=== PATIENT | female | born 1955 | race Caucasian/White ===

== ENCOUNTER 2020-01-26 09:12 | Outpatient (REF) | payer OTHER, SELFPAY ==
[2020-01-26 11:07] LABS: MANUAL DIFF FLAG NO
[2020-01-26 11:16] LABS: Basophils Percent Auto 0.4 % (0-2); Eosinophils Absolute Auto 0.1 X10*3/uL (0.0-0.4); Hematocrit 39.6 % (37-47); Hemoglobin 12.6 g/dl (12.0-16.0); Imm Gran Abs Auto 0.02 X10*3/uL (0.00-0.03); Imm Gran Pct Auto 0.4 % (0.0-0.4); Lymphocytes Absolute Auto 1.5 X10*3/uL (1.2-4.9); Mean Corpuscular HGB Conc 31.8 g/dl (31.0-35.0); Mean Corpuscular Hemoglobin 32.6 pg (27.0-33.0); Mean Corpuscular Volume 102.3 fL (80-98); Mean Platelet Volume 11.7 fL (9.4-12.3); Monocytes Absolute Auto 0.5 X10*3/uL (0.1-1.2); Monocytes Percent Auto 9.2 % (2-11); Neutrophils Absolute Auto 3.3 X10*3/uL (2.0-8.3); Platelet Count 275 X10*3/uL (160-400); Red Blood Count 3.87 X10*6/uL (4.20-5.50); Red Cell Distribution Width 12.3 % (11.0-16.0); White Blood Count 5.4 X10*3/uL (4.8-10.8)
[2020-01-26 11:47] LABS: Anion Gap 15 (12-20); Blood Urea Nitrogen 16 mg/dL (9-16); Calcium 9.3 mg/dL (8.4-10.2); Carbon Dioxide 26 mmol/L (22-29); Chloride 105 mmol/L (96-108); Estimated Glomerular Filt Rate > 60; Glucose Random 79 mg/dL (60-115); Potassium 4.5 mmol/l (3.3-5.1); Sodium 141 mmol/L (135-145)
[2020-01-26 12:02] LABS: Vitamin B12 339 pg/mL (200-900)
[2020-01-26 12:09] LABS: Ferritin 84 ng/mL (10-250)
== END 2020-01-26 09:13 | disposition home or self-care (01) ==
LOC: HO.HMGCLDS 09:12
PROVIDERS: PCP Internal Medicine; Visit Provider Internal Medicine
DX: Z20.828 Contact with and (suspected) exposure to other viral communicable diseases (principal); R10.13 Epigastric pain; D80.3 Selective deficiency of immunoglobulin G [IgG] subclasses; E55.9 Vitamin D deficiency, unspecified; E61.1 Iron deficiency; F33.9 Major depressive disorder, recurrent, unspecified; G25.81 Restless legs syndrome; J30.9 Allergic rhinitis, unspecified; M62.838 Other muscle spasm
CPT/HCPCS: 36415; 80048; 82607; 82728; 85025; 87635

== ENCOUNTER 2020-03-09 14:55 | Outpatient (REF) | payer OTHER, SELFPAY ==
--- NOTE | 2020-03-09 15:04 | XR_ITS ---
EXAMINATION: XR ELBOW, LEFT CLINICAL INFORMATION: Lateral epicondylitis left elbow. COMPARISON: None TECHNIQUE: AP, lateral, and oblique views of the left elbow. FINDINGS: There is no visible acute fracture, dislocation, or subluxation. No abnormal joint effusion. There is a small bony outpouching arising from the anterior and medial aspect of the distal femur, question tug lesion from old injury or osteochondroma. The soft tissues are unremarkable. XR/XR elbow LT 2V IMPRESSION: No acute fracture, dislocation, or subluxation. Small bony growth anterior and medial to the distal humerus. Most likely tug lesion. Differential diagnosis includes osteochondroma/exostosis.
== END 2020-03-09 14:56 | disposition home or self-care (01) ==
LOC: HO.HMGCX 14:55
PROVIDERS: PCP Internal Medicine; Visit Provider Internal Medicine
DX: M77.10 Lateral epicondylitis, unspecified elbow (principal)
CPT/HCPCS: 73070

== ENCOUNTER → 2020-03-30 08:03 | Outpatient (BNVA) | payer OTHER, SELFPAY | PROVIDERS: PCP Internal Medicine; Referring Provider Internal Medicine; Visit Provider Student in an Organized Health Care Education/Training Program | DX: Z13.89 Encounter for screening for other disorder (principal) | CPT/HCPCS: Q3014 ==

== ENCOUNTER → 2020-05-25 10:51 | Outpatient (BNVA) | payer OTHER, SELFPAY | PROVIDERS: PCP Internal Medicine; Visit Provider Orthopaedic Surgery | DX: M77.12 Lateral epicondylitis, left elbow (principal) | CPT/HCPCS: 99202 ==

== ENCOUNTER → 2020-06-24 08:38 | Outpatient (BNVA) | payer OTHER, SELFPAY | PROVIDERS: PCP Internal Medicine; Visit Provider Family Medicine Adult Medicine | DX: M96.1 Postlaminectomy syndrome, not elsewhere classified (principal); M54.12 Radiculopathy, cervical region; Z79.899 Other long term (current) drug therapy | CPT/HCPCS: Q3014 ==

== ENCOUNTER → 2020-07-09 08:01 | Outpatient (BNVA) | payer OTHER, SELFPAY | PROVIDERS: PCP Internal Medicine; Visit Provider Nurse Practitioner Family | DX: M96.1 Postlaminectomy syndrome, not elsewhere classified (principal); M54.12 Radiculopathy, cervical region | CPT/HCPCS: 99212 ==

== ENCOUNTER 2020-07-13 15:58 | Outpatient (REF) | payer OTHER, SELFPAY ==
--- NOTE | ~2020-07-13 | XR_ITS ---
EXAMINATION: XR RIBS, RIGHT CLINICAL INFORMATION: Injury COMPARISON: Previous chest x-ray most recent TECHNIQUE: 3 views of the right ribs and one view of the chest were obtained. FINDINGS: The cardiac and mediastinal contours are normal. The lungs are clear. There is no pleural effusion or pneumothorax. There are degenerative changes of the thoracic spine. There is a right posterior 11th rib fracture. XR/XR ribs RT min 3V w CXR1V IMPRESSION: Right posterior 11th rib fracture.
== END 2020-07-13 15:59 | disposition home or self-care (01) ==
LOC: HO.HMGCX 15:58
PROVIDERS: PCP Internal Medicine; Visit Provider Nurse Practitioner Family
DX: S29.9XXA Unspecified injury of thorax, initial encounter (principal); W19.XXXA Unspecified fall, initial encounter; Y93.9 Activity, unspecified; Y92.9 Unspecified place or not applicable; Y99.9 Unspecified external cause status
CPT/HCPCS: 71101

== ENCOUNTER → 2020-07-20 10:22 | Outpatient (BNVA) | payer OTHER, SELFPAY | PROVIDERS: PCP Internal Medicine; Visit Provider Urology | DX: N30.10 Interstitial cystitis (chronic) without hematuria (principal) | CPT/HCPCS: 99212 ==

== ENCOUNTER 2020-08-03 07:41 | Outpatient (REF) | payer OTHER, SELFPAY ==
[2020-08-03 11:48] LABS: Alanine Aminotransferase 11 U/L (0-31); Albumin Level 4.4 g/dL (3.5-5.0); Alkaline Phosphatase 90 U/L (39-117); Anion Gap 14 (12-20); Aspartate Amino Transferase 18 U/L (5-31); Bilirubin Total 0.4 mg/dL (0.0-1.0); Blood Urea Nitrogen 13 mg/dL (9-16); Calcium 9.3 mg/dL (8.4-10.2); Carbon Dioxide 27 mmol/L (22-29); Chloride 106 mmol/L (96-108); Estimated Glomerular Filt Rate > 60; Glucose Random 98 mg/dL (60-115); Sodium 142 mmol/L (135-145); Total Protein 6.6 g/dL (6.5-8.0)
[2020-08-03 12:09] LABS: Ferritin 103 ng/mL (10-250); TSH reflex Free T4 1.86 uIU/mL (0.32-4.0)
[2020-08-03 12:17] LABS: Amphetamine Screen Urine Not Detected (Not Detect); Barbiturates, Urine Not Detected (Not Detect); Benzodiazepines Screen Urine Not Detected (Not Detect); Cannabinoid Screen Urine POSITIVE (Not Detect); Cocaine Screen Urine Not Detected (Not Detect); Opiate Screen Urine Not Detected (Not Detect); Phencyclidine Screen Urine Not Detected (Not Detect)
[2020-08-04 23:57] LABS: Immunoglobulin G Subclass 1 384 mg/dL (382-929); Immunoglobulin G Subclass 2 175 mg/dL (241-700); Immunoglobulin G Subclass 3 18 mg/dL (22-178); Immunoglobulin G Subclass 4 14.2 mg/dL (4-86); Immunoglobulin G Total 651 mg/dL (600-1540)
[2020-08-05 10:22] LABS: LDL Cholesterol Direct 116 mg/dL (<100)
[2020-08-06 16:43] LABS: Vitamin D 25-OH, D2 <4 ng/mL; Vitamin D 25-OH, D3 44 ng/mL; Vitamin D 25-OH, Total 44 ng/mL (30-100)
[2020-08-26 11:54] LABS: Noroxycodone, Ur 1739; Oxycodone, Ur 253
[2020-08-26 11:55] LABS: Codeine, Ur NEGATIVE; Hydrocodone, Ur NEGATIVE; Hydromorphone, Ur NEGATIVE; Morphine, Ur NEGATIVE; Norhydrocodone, Ur NEGATIVE; Oxymorphone, Ur 225
== END 2020-08-03 07:42 | disposition home or self-care (01) ==
LOC: HO.HMGCLDS 07:41
PROVIDERS: PCP Internal Medicine; Visit Provider Physician Assistant
DX: D80.3 Selective deficiency of immunoglobulin G [IgG] subclasses (principal); M96.1 Postlaminectomy syndrome, not elsewhere classified; E61.1 Iron deficiency; M54.12 Radiculopathy, cervical region; M62.838 Other muscle spasm; R20.2 Paresthesia of skin; E55.9 Vitamin D deficiency, unspecified; F11.20 Opioid dependence, uncomplicated; F33.9 Major depressive disorder, recurrent, unspecified
CPT/HCPCS: 36415; 80053; 80307; 80364; 80365; 82306; 82728; 82784; 83721; 84443

== ENCOUNTER → 2020-08-16 08:57 | Outpatient (BNVA) | payer OTHER, SELFPAY | PROVIDERS: Visit Provider Orthopaedic Surgery | DX: M65.341 Trigger finger, right ring finger (principal); G56.01 Carpal tunnel syndrome, right upper limb; G56.21 Lesion of ulnar nerve, right upper limb | CPT/HCPCS: 99202 ==

== ENCOUNTER 2020-09-16 06:53 | Day surgery (SDC) | payer OTHER, SELFPAY ==
[2020-09-10 12:44] VITALS: BMI 24.6
--- NOTE | 2020-09-14 11:08 | P.CONAN_ITS ---
Documented by User: Charo Murillo 09/14/20 11:12 HPI - Anesthesia Eval Consult details Narrative: 64yo F for Right Cubital Tunnel Release vs Transposition, Ring Finger A1 Pully Release R rib fracture 07/2020 [facility] Active Problems Active Problems: All Active Problems (Updated 09/03/20 @ 08:58 by Kalia Hunt MD) Neuropathy (Acute) Cubital tunnel syndrome on right (Acute) Carpal tunnel syndrome of right wrist (Acute) Trigger finger, right ring finger (Acute) Interstitial cystitis (Acute) Traumatic injury of chest wall (Acute) Cervical radiculopathy (Acute) Failed back syndrome, lumbar (Acute) Paresthesia of hand, bilateral (Acute) Lateral epicondylitis, left elbow (Acute) Elbow pain, left (Acute) Flu-like symptoms (Acute) Lumbar spondylosis (Acute) Primary osteoarthritis, right hand (Acute) Cervical stenosis of spinal canal (Acute) Tennis elbow (Acute) Chronic narcotic dependence (Acute) Pain management (Acute) Allergic rhinitis (Acute) Muscle spasm (Acute) Dyspepsia (Acute) Depression, major, recurrent (Acute) Vitamin D deficiency (Acute) Iron deficiency (Acute) IgG deficiency (Acute) Restless leg syndrome (Acute) Spinal stenosis at L4-L5 level (Acute) Past Medical History Medical History Allergic rhinitis Cervical radiculopathy Cervical stenosis of spinal canal Chronic narcotic dependence Depression, major, recurrent Diverticulosis Dyspepsia Failed back syndrome, lumbar History of sleep apnea Hx LEEP (loop electrosurgical excision procedure), cervix, Hx of degenerative disc disease IBS (irritable bowel syndrome) Interstitial cystitis Iron deficiency Lumbar spondylosis Migraines Muscle spasm Overactive bladder Pain management Primary osteoarthritis, right hand Restless leg syndrome Spinal stenosis at L4-L5 level Tennis elbow Vitamin D deficiency Family History Family History Father Leukemia HTN (hypertension) CVD (cerebrovascular disease) Mother HTN (hypertension) Alzheimer disease Afib Maternal Grandmother Uterine cancer Maternal Grandfather History of heart attack CVD (cardiovascular disease) Paternal Grandmother History of heart attack CVD (cardiovascular disease) Paternal Grandfather CVD (cardiovascular disease) Maternal Aunt Cervical cancer Emphysema lung Surgical History Surgical History History of cystoscopy (01/27/14) History of endometrial ablation History of laparoscopic appendectomy (1988) History of lumbar surgery (2010) Hx of bilateral breast reduction surgery Hx of colonoscopy (01/16/16) Hx of hysterectomy, total (01/2013) Hx of right knee surgery (2010) Social History Social History (Updated 08/16/20 @ 09:06 by Yamile Adams) Household Members Other:: lives with brother Alcohol intake: current Alcohol intake frequency: a few times a month Patient Tobacco Use Status: Former Tobacco user Quit Date: 4yrs ago Use of substances other than those prescribed or required for medical reasons: Yes Substance Use Type Other:: medical marijuana Substance Use Frequency: Daily Are you DNR?: No Advance Directives: No Advance Directives Information Provided: Yes Current occupational status: disabled Current occupation: [employer] Meds Allergies Allergy/AdvReac Type Severity Reaction Status Date / Time codeine [CODEINE] Allergy Severe SWELLING Verified 09/16/20 07:48 erythromycin base Allergy Intermediate TOPICAL Verified 09/16/20 07:48 [Erythromycin Base] ERYTHROMYCIN- SKIN IRRITATION Home Medications Medication Instructions Recorded Confirmed Last Taken Type cetirizine 10 mg tablet 20 mg PO BID 01/06/20 09/10/20 Unknown History fluticasone propionate 50 2 spray INTRANASAL DAILY 01/06/20 09/10/20 Unknown History mcg/actuation nasal spray,suspension pramipexole 1.5 mg tablet 1.5 mg PO BEDTIME 01/06/20 09/10/20 Unknown History propranolol 20 mg tablet 20 mg PO BEDTIME 01/06/20 09/10/20 Unknown History sumatriptan succinate 50 mg tablet 50 mg PO DAILY PRN 01/06/20 09/10/20 Unknown History triamcinolone acetonide 0.1 % 1 applic TOPICAL BID PRN 01/06/20 09/10/20 Unknown History topical cream omalizumab 150 mg/mL subcutaneous mg SUBCUT 02/03/20 09/03/20 Unknown History syringe Exam Exam Date and Time: September 14, 2020 1108 Height,Weight and Vital Signs: Height 5 ft 5 in Weight 67.132 kg Pertinent Lab Results Pertinent Lab Results: Laboratory Tests 08/03/20 07:50 Sodium 142 Potassium 5.0 Chloride 106 Carbon Dioxide 27 BUN 13 Creatinine 0.82 Assessment and Plan Assessment Anesthesia Assessment: Chart Reviewed Documented by User: Abdirahman Canada MD 09/16/20 07:52 [facility] Past Medical History Medical History Allergic rhinitis Cervical radiculopathy Cervical stenosis of spinal canal Chronic narcotic dependence Depression, major, recurrent Diverticulosis Dyspepsia Failed back syndrome, lumbar History of sleep apnea Hx LEEP (loop electrosurgical excision procedure), cervix, Hx of degenerative disc disease IBS (irritable bowel syndrome) Interstitial cystitis Iron deficiency Lumbar spondylosis Migraines Muscle spasm Overactive bladder Pain management Primary osteoarthritis, right hand Restless leg syndrome Spinal stenosis at L4-L5 level Tennis elbow Vitamin D deficiency Family History Family History Father Leukemia HTN (hypertension) CVD (cerebrovascular disease) Mother HTN (hypertension) Alzheimer disease Afib Maternal Grandmother Uterine cancer Maternal Grandfather History of heart attack CVD (cardiovascular disease) Paternal Grandmother History of heart attack CVD (cardiovascular disease) Paternal Grandfather CVD (cardiovascular disease) Maternal Aunt Cervical cancer Emphysema lung Surgical History Surgical History History of cystoscopy (01/27/14) History of endometrial ablation History of laparoscopic appendectomy (1988) History of lumbar surgery (2010) Hx of bilateral breast reduction surgery Hx of colonoscopy (01/16/16) Hx of hysterectomy, total (01/2013) Hx of right knee surgery (2010) Social History Social History (Updated 08/16/20 @ 09:06 by Yamile Adams) Household Members Other:: lives with brother Alcohol intake: current Alcohol intake frequency: a few times a month Patient Tobacco Use Status: Former Tobacco user Quit Date: 4yrs ago Use of substances other than those prescribed or required for medical reasons: Yes Substance Use Type Other:: medical marijuana Substance Use Frequency: Daily Are you DNR?: No Advance Directives: No Advance Directives Information Provided: Yes Current occupational status: disabled Current occupation: [employer] Meds Allergies Allergy/AdvReac Type Severity Reaction Status Date / Time codeine [CODEINE] Allergy Severe SWELLING Verified 09/16/20 07:48 erythromycin base Allergy Intermediate TOPICAL Verified 09/16/20 07:48 [Erythromycin Base] ERYTHROMYCIN- SKIN IRRITATION Home Medications Medication Instructions Recorded Confirmed Last Taken Type cetirizine 10 mg tablet 20 mg PO BID 01/06/20 09/10/20 Unknown History fluticasone propionate 50 2 spray INTRANASAL DAILY 01/06/20 09/10/20 Unknown History mcg/actuation nasal spray,suspension pramipexole 1.5 mg tablet 1.5 mg PO BEDTIME 01/06/20 09/10/20 Unknown History propranolol 20 mg tablet 20 mg PO BEDTIME 01/06/20 09/10/20 Unknown History sumatriptan succinate 50 mg tablet 50 mg PO DAILY PRN 01/06/20 09/10/20 Unknown History triamcinolone acetonide 0.1 % 1 applic TOPICAL BID PRN 01/06/20 09/10/20 Unknown History topical cream omalizumab 150 mg/mL subcutaneous mg SUBCUT 02/03/20 09/03/20 Unknown History syringe Exam Airway Mallampati Class: I TM Dist: >3cm Neck ROM: Full Loose/Missing/Broken Teeth: No Heart: RRR Assessment and Plan Assessment Anesthesia Assessment: Anesthesia Plan Discussed and Chart Reviewed Final Anesthetic Review NPO: Yes ASA Class: II Final Preanesthetic Review: No Changes in Pt Med Stat, Meds/Allgs Chart Reviewed, Consent Obtained/Reviewed and Anes Risks/Benef Reviewed Patient Risk: Low Procedure Risk: Low Anesthetic Plan Anesthetic Plan: GA Disposition: Standard PACU
[2020-09-16] VITALS (11 sets, daily range): BP systolic 117–166; BP diastolic 47–68; PULSE 45–66; RESP 16–20; TEMP 36.1–36.6; O2SAT 94–100
[2020-09-16] MEDS: Lactated Ringers 1,000 ML 100 ML IVCONT (07:45)
--- NOTE | 2020-09-16 08:25 | MHC.SHP ---
Pre-Procedural Eval Section B Chief Complaint: carpal tunnel syndrome Allergies: Allergies Allergy/AdvReac Type Severity Reaction Status Date / Time codeine [CODEINE] Allergy Severe SWELLING Verified 09/16/20 07:48 erythromycin base Allergy Intermediate TOPICAL Verified 09/16/20 07:48 [Erythromycin Base] ERYTHROMYCIN- SKIN IRRITATION Plan I have reviewed the history and physical and performed a pertinent physical examination on my patient. No changes have occurred unless specified.
--- NOTE | 2020-09-16 08:25 | W.PM.OPN ---
Operative Note Operative Note Date of Service: 09/16/20 Narrative: Operative Note Narrative: Preop diagnosis: 1. Right Cubital tunnel syndrome 2. Right Carpal tunnel syndrome 3. Right ring finger trigger finger Postop diagnosis: Same Procedure: 1. Right Cubital Tunnel Release 2. Right carpal tunnel release 3. Right ring finger A1 nusrat release, 4. Right ring finger tenotomy and excision of ulnar slip of FDS tendon Surgeon: Concha Betancourt MD Anesthesia: General Findings: Thickened transverse carpal ligament. The right ring finger was still locking after the A1 nusrat release. No locking and catching after tenotomy and excision of the ulnar slip of the FDS tendon. Implants: none Tourniquet time: 58 minutes EBL: 5.0 ml Specimen: none Drains: None Complications: None Disposition: Brought to the recovery room in stable condition Plan: Follow-up in 10-14 days for wound check, and suture removal Indications: The patient is 64 years old woman with right cubital tunnel syndrome, right carpal tunnel syndrome, and a symptomatic right ring finger trigger finger . The risks and benefits of operative treatment, including but not limited to risk of damage to blood vessels, nerves, tendons, infection, recurrence, persistent pain or numbness, incomplete resolution of preoperative symptoms, or need for further surgery were discussed with the patient and they wished to proceed with surgery. Procedure: Once consent was obtained patient was brought back to the operating suite and placed in the operating table in a supine position. Perioperative antibiotics and anesthesia was administered by the anesthesia team. The limb was prepped and draped in a standard surgical fashion, and a sterile tourniquet applied to the proximal aspect of the right upper extremity. The limb was elevated exsanguinated with Esmarch bandage and the tourniquet inflated to 250 mm of mercury for a total tourniquet time of 58 minutes. Once assured that we had a good block, a 1.5 cm oblique incision was made centered over the A1 nusrat of the right ring finger . The incision was made through the skin to the subcutaneous tissues using a #15 blade. Careful dissection was made down to the level of the A1 nusrat using tenotomy scissors, with care being taken to protect the nearby neurovascular structures. A longitudinal incision was made in the A1 nusrat 1st using a #15 blade, then using tenotomy scissors under direct visualization. Following our A1 nusrat release, we noted that she still had locking or catching of the digit with flexion and extension. At this point decision was made to proceed with a tenotomy and excision of the ulnar slip of the flexor digitorum superficialis tendon. I then made part of a Emilia his incision centered over the PIP joint of the right ring finger. Incision was made through the skin to the subcutaneous tissues. I then carefully dissected down to the level of the flexor tendon sheath with care being taken to protect the neurovascular structures. I then used a 15. Blade to open the A3 nusrat. The FDP tendon was then retracted radially exposing to me the ulnar slip of the FDS tendon. The FDS or flexor digitorum superficialis tendon was then cut just prior to its insertion in the middle phalanx using tenotomy scissors. I then used tenotomy scissors to carefully free up the ulnar slip of the FDS tendon from the surrounding tissues including from its attachment to the radial slip of the FDS tendon. I was then able to withdraw the ulnar slip of the FDS tendon proximally to the A1 nusrat area. In this area I then made a beveled cut removing the ulnar slip of the FDS tendon and placing it on the back table. I again tested the right ring finger through flexion and extension and noted that we no longer had locking and catching. Once assured that we had a good block, a 1.5 cm longitudinal incision was made centered over the right carpal tunnel. The incision was made through the skin to the subcutaneous tissues using a #15 blade. Dissection was made down to the level of the transverse carpal ligament with care being taken to protect the palmar cutaneous nerve. Once the transverse carpal ligament was clearly visualized, a longitudinal incision was made in the transverse carpal ligament 1st using a #15 blade, then using tenotomy scissors under direct visualization. Care was taken to look for and protect the motor branch of the median nerve when seen in this area. Once satisfied with our carpal tunnel release the wound was irrigated with normal saline. A 6 cm gently curved but longitudinally oriented incision was made centered over the cubital tunnel of the right upper extremity. Incision was made through the skin to the subcutaneous tissues using a # 15 Blade. I then dissected down to the level of the medial epicondyle and the cubital tunnel using tenotomy scissors. Care was taken to protect the lateral antebrachial cutaneous nerve. The ulnar nerve was identified just posterior to the medial intermuscular septum. Small vessel loop was passed behind the ulnar nerve and used to apply gentle traction to facilitate our release. The ulnar nerve was released in a proximal to distal direction using tenotomy in iris scissors while directly visualizing and protecting the ulnar nerve. Thickening and fibrosis was appreciated about the ulnar nerve as it passed through the cubital tunnel. The ulnar nerve was assessed as I passed the elbow through full flexion and extension and was found to remain stable within its groove. At this point the tourniquet was deflated and hemostasis obtained with a brief period of local pressure and bipolar electrocautery. The wounds were copiously irrigated with normal saline. The subcutaneous layer at the elbow was closed with 4-0 Vicryl suture, and the skin edges were reapproximated with 5-0 nylon suture. The wounds were infiltrated with some 1% lidocaine with epinephrine for postop pain control and sterile dressings and a posterior splint was applied. The patient appears to have tolerated the procedure well and with no complications. All digits were well vascularized conclusion of the case.
[2020-09-16] MEDS: Acetaminophen 325 MG TABLET 650 MG PO (11:01)
[2020-09-16] MEDS: fentaNYL citrate/PF 100 MCG/2 ML VIAL 50 MCG IVPUSH ×2 (11:02→11:12)
== END 2020-09-16 12:00 | disposition home or self-care (01) ==
PROVIDERS: PCP Internal Medicine; Visit Provider Orthopaedic Surgery
PROC: (CPT 64718; principal; 2020-09-16 08:40)
PROC: (CPT 64721; 2020-09-16 08:40)
DX: G56.01 Carpal tunnel syndrome, right upper limb (principal); G56.21 Lesion of ulnar nerve, right upper limb; M65.341 Trigger finger, right ring finger; M85.841 Other specified disorders of bone density and structure, right hand; Z88.8 Allergy status to other drugs, medicaments and biological substances; Z88.1 Allergy status to other antibiotic agents; Z87.891 Personal history of nicotine dependence; Z79.899 Other long term (current) drug therapy
CPT/HCPCS: 64721; 64718; 26170; 26055; 88304; J0690; J1100; J2250; J2405; J3010

== ENCOUNTER → 2020-09-27 10:02 | Outpatient (BNVA) | payer OTHER, SELFPAY | PROVIDERS: Visit Provider Orthopaedic Surgery ==

== ENCOUNTER 2020-12-12 23:08 | Emergency (ER) | payer OTHER, SELFPAY ==
--- NOTE | ~2020-12-12 | CT_ITS ---
EXAMINATION: NONCONTRAST HEAD CT NONCONTRAST MAXILLOFACIAL CT INDICATION INFORMATION: Fall COMPARISON: 01/05/2018 TECHNIQUE: Separate noncontrast CT examinations of the head and facial bone were performed. Coronal and sagittal images were created for each examination at the technologist workstation. This CT examination was performed using dose optimization techniques as appropriate, variously including the following: *Automated exposure control *Adjustment of mA and/or kV according to patient size (this includes techniques or standardized protocols for targeted exams where dose is matched to indication/reason for exam; i.e. extremities or head) *Use of iterative reconstruction technique DLP: 885 mGy-cm FINDINGS: Head: There is no evidence of acute intracranial hemorrhage or territorial infarction. No abnormal mass effect or midline shift is seen. Miller to white matter differentiation is well preserved. No extra-axial fluid collections are identified. No hydrocephalus. No significant volume loss. There is no abnormal attenuation within the brain parenchyma. No acute soft tissue abnormality. No calvarial fracture. The mastoid air cells are well aerated. Maxillofacial: Mildly inwardly angulated bilateral nasal bone fractures. Associated soft tissue swelling and subcutaneous air present anterior to the nasal bones. No additional acute maxillofacial fractures are seen. The pterygoid plates are intact. The lamina papyracea are intact. The zygomatic arches are intact. The orbital rims are intact. Mandible and temporomandibular joints are intact. Mild mucosal thickening within the bilateral maxillary sinuses. Remainder of the paranasal sinuses are clear. Mastoid air cells are pneumatized. The uncinate process is normal bilaterally. The infundibula and middle meati are patent. The nasal septum is midline. The orbits demonstrate a normal appearance bilaterally. The globes are intact, and there are no suspicious findings to suggest retrobulbar hemorrhage. Soft tissues unremarkable. CT/CT facial bones wo con IMPRESSION: 1. No acute intracranial findings. 2. Minimally inwardly displaced bilateral nasal bone fractures. No additional acute facial bone fractures.
--- NOTE | ~2020-12-12 | XR_ITS ---
EXAMINATION: XR WRIST, RIGHT CLINICAL INFORMATION: Pain status post trauma COMPARISON: None TECHNIQUE: PA, lateral, oblique, and scaphoid views of the right wrist. XR/XR wrist RT min 3V FINDINGS/IMPRESSION: Comminuted distal radial metaphyseal fracture with mild dorsal angulation, and extension into the distal radioulnar joint. No definite extension into the radiocarpal joint. Mildly displaced avulsion fracture. Soft tissues unremarkable.
[2020-12-13 01:14] VITALS: BP 139/51; PULSE 56; RESP 18; TEMP 36.7; O2SAT 99; BMI 25.7
--- NOTE | 2020-12-13 02:05 | ED.FALL ---
HPI - Fall General Chief Complaint: Fall Stated Complaint: fall, multiple lac and dental damage Time Seen by Provider: 12/13/20 02:05 Source: patient Mode of arrival: ambulatory History of Present Illness HPI Narrative: 65-year-old female presents after her brother head place that chair in for the door so that her pet could not get out and she tripped over the chair falling forward and hitting her face. She denies any loss of consciousness and is not on blood thinners. Related Data Home Medications Medication Instructions Recorded Confirmed cetirizine 10 mg tablet 20 mg PO BID 01/06/20 09/10/20 fluticasone propionate 50 2 spray INTRANASAL DAILY 01/06/20 09/10/20 mcg/actuation nasal spray,suspension pramipexole 1.5 mg tablet 1.5 mg PO BEDTIME 01/06/20 09/10/20 propranolol 20 mg tablet 20 mg PO BEDTIME 01/06/20 09/10/20 sumatriptan succinate 50 mg tablet 50 mg PO DAILY PRN 01/06/20 09/10/20 triamcinolone acetonide 0.1 % 1 applic TOPICAL BID PRN 01/06/20 09/10/20 topical cream Previous Rx's Medication Instructions Recorded pentosan polysulfate sodium 100 mg 100 mg PO TID 30 Days #90 cap 02/04/20 capsule (Elmiron) oxybutynin chloride 10 mg 10 mg PO DAILY 90 Days #90 tab 07/20/20 tablet,extended release 24 hr nitrofurantoin macrocrystal 50 mg 50 mg PO BEDTIME 90 Days #90 cap 08/20/20 capsule lidocaine 5 % topical patch 1 patch TOPICAL DAILY 30 Days #30 09/03/20 (Lidoderm) ea hydrocodone 5 mg-acetaminophen 325 1 tab PO Q4-6H PRN 7 Days #30 tab 09/16/20 mg tablet cholecalciferol (vitamin D3) 50 50 mcg PO DAILY #90 cap 09/20/20 mcg (2,000 unit) capsule omeprazole 20 mg capsule,delayed 20 mg PO BID #180 cap 10/18/20 release acetaminophen 650 mg 650 mg PO Q8H 90 Days #270 tab 11/15/20 tablet,extended release (Tylenol Arthritis Pain) ibuprofen 600 mg tablet 600 mg PO TID 90 Days #270 tab 11/15/20 bupropion HCl 200 mg tablet,12 hr 200 mg PO QAM 90 Days #90 cap 11/17/20 sustained-release escitalopram oxalate 10 mg tablet 10 mg PO DAILY 90 Days #90 tab 11/17/20 (Lexapro) ferrous gluconate 324 mg (37.5 mg 324 mg PO DAILY #30 cap 11/17/20 iron) tablet gabapentin 300 mg capsule 300 mg PO BEDTIME 30 Days #30 cap 11/17/20 baclofen 10 mg tablet 10 mg PO BID 30 Days #60 tab 11/23/20 Allergies Allergy/AdvReac Type Severity Reaction Status Date / Time codeine [CODEINE] Allergy Severe SWELLING Verified 12/13/20 01:14 erythromycin base Allergy Intermediate TOPICAL Verified 12/13/20 01:14 [Erythromycin Base] ERYTHROMYCIN- SKIN IRRITATION Review of Systems Review of Systems: Pertinent positives and negatives as stated in HPI 10 point review of systems is otherwise negative. [facility] Past Medical History Source: nursing notes reviewed Medical History Allergic rhinitis Cervical radiculopathy Cervical stenosis of spinal canal Chronic narcotic dependence Depression, major, recurrent Diverticulosis Dyspepsia Failed back syndrome, lumbar History of sleep apnea Hx LEEP (loop electrosurgical excision procedure), cervix, Hx of degenerative disc disease IBS (irritable bowel syndrome) Interstitial cystitis Iron deficiency Lumbar spondylosis Migraines Muscle spasm Overactive bladder Pain management Primary osteoarthritis, right hand Restless leg syndrome Spinal stenosis at L4-L5 level Tennis elbow Vitamin D deficiency Surgical History History of cystoscopy (01/27/14) History of endometrial ablation History of laparoscopic appendectomy (1988) History of lumbar surgery (2010) Hx of bilateral breast reduction surgery Hx of colonoscopy (01/16/16) Hx of hysterectomy, total (01/2013) Hx of right knee surgery (2010) Family History Family History Father Leukemia HTN (hypertension) CVD (cerebrovascular disease) Mother HTN (hypertension) Alzheimer disease Afib Maternal Grandmother Uterine cancer Maternal Grandfather History of heart attack CVD (cardiovascular disease) Paternal Grandmother History of heart attack CVD (cardiovascular disease) Paternal Grandfather CVD (cardiovascular disease) Maternal Aunt Cervical cancer Emphysema lung Social History Social History Household Members Other:: lives with brother Alcohol intake: current Alcohol intake frequency: a few times a month Patient Tobacco Use Status: Former Tobacco user Quit Date: 4yrs ago Advance Directives: No Advance Directives Information Provided: Yes Patient : No Current occupational status: disabled 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 GENERAL: Well developed, well nourished, in no acute distress. HEAD: Normocephalic/atraumatic EYES: PERRLA, EOMI EARS: Ext canals without abnormality NOSE: Nares patent bilateral, no septal hematoma OROPHARYNX: no oral lesions noted, posterior pharynx clear, left front tooth noted to be contused but stable, minor contusion to upper lip NECK: Supple, no adenopathy LUNGS: Normal breath sounds. No adventitious sounds or accessory muscle use. SpO2<99> CARDIOVASCULAR: Regular rate and rhythm without noted murmurs, no JVD or lower extremity edema. ABDOMEN: Soft, non-tender, non-distended with bowel sounds. RIGHT UPPER EXTREMITY: Deformity noted to distal forearm, palpable radial/on all pulses, capillary refill less than 3 seconds, sensation intact SKIN: Inspection of the skin reveals no rashes NEUROLOGIC: Alert and oriented x 4. Course Course Course Narrative: 65-year-old female with history and clinical presentation consistent mechanical fall without LOC and not on blood thinners. Review of all investigations shows fracture of right radius and she will be placed in a sugar-tong splint with sling. Broken nose Discharge Plan Discharge Clinical Impression: Fracture of right distal radius, Closed fracture nasal bone, Concussion injury of tooth Patient Disposition: Home, Self-Care Instructions: Arm Fracture in Adults (ED), Nasal Fracture (ED), Splint Care (ED) Additional Instructions: 1. Please follow up with the dentist 1st thing in the morning for evaluation of your left front tooth. 2. Follow-up with the orthopedic surgery office, the referral is provided to you below. 3. Tylenol 1000 mg, orally, every 6 hours as needed for pain control. 4. Follow-up with your primary care provider by calling the office 1st thing in the morning and setting up an appointment for re-evaluation. 5. Apply ice for 10-15 minutes, 3 to 4 times a day to unexposed skin. Return to the ER for acute worsening of your symptoms. Prescriptions: No Action Elmiron 100 mg capsule 100 mg PO TID 30 Days Qty: 90 RF: 6 oxybutynin chloride 10 mg tablet extended release 24hr 10 mg PO DAILY 90 Days Qty: 90 RF: 1 nitrofurantoin macrocrystal 50 mg capsule 50 mg PO BEDTIME 90 Days Qty: 90 RF: 2 cholecalciferol (vitamin D3) 50 mcg (2,000 unit) capsule 50 mcg PO DAILY Qty: 90 RF: 0 omeprazole 20 mg capsule,delayed release(DR/EC) 20 mg PO BID Qty: 180 RF: 0 ibuprofen 600 mg tablet 600 mg PO TID 90 Days Qty: 270 RF: 0 acetaminophen [Tylenol Arthritis Pain] 650 mg tablet extended release 650 mg PO Q8H 90 Days Qty: 270 RF: 0 escitalopram oxalate [Lexapro] 10 mg tablet 10 mg PO DAILY 90 Days Qty: 90 RF: 0 bupropion HCl 200 mg tablet sustained-release 12 hr 200 mg PO QAM 90 Days Qty: 90 RF: 0 gabapentin 300 mg capsule 300 mg PO BEDTIME 30 Days Qty: 30 RF: 0 ferrous gluconate 324 mg (37.5 mg iron) tablet 324 mg PO DAILY Qty: 30 RF: 3 baclofen 10 mg tablet 10 mg PO BID 30 Days Qty: 60 RF: 0 hydrocodone-acetaminophen 5-325 mg tablet 1 tab PO Q4-6H PRN (Reason: pain (scale score 4-6)) 7 Days Qty: 30 RF: 0 lidocaine [Lidoderm] 5 % adhesive patch,medicated 1 patch topical DAILY 30 Days Qty: 30 RF: 3 propranolol 20 mg tablet 20 mg PO BEDTIME RF: 0 cetirizine 10 mg tablet 20 mg PO BID RF: 0 sumatriptan succinate 50 mg tablet 50 mg PO DAILY PRN (Reason: Headache) RF: 0 triamcinolone acetonide 0.1 % cream 1 applic topical BID PRN (Reason: Rash) RF: 0 fluticasone propionate 50 mcg/actuation spray,suspension 2 spray intranasal DAILY RF: 0 pramipexole 1.5 mg tablet 1.5 mg PO BEDTIME RF: 0 Referrals: Kalia Hunt MD [Primary Care Provider] - 2 days Mikey Camacho MD [Physician] - 2 days (Evaluation for right radial fracture with apparent extension into the radioulnar joint)
[2020-12-13] MEDS: Acetaminophen 325 MG TABLET 975 MG PO (02:12)
--- NOTE | 2020-12-13 02:36 | PC.NURSE ---
pt returned from ct.
[2020-12-13 03:51] VITALS: BP 139/53; PULSE 53; RESP 16; O2SAT 98
== END 2020-12-13 03:57 | disposition home or self-care (01) ==
PROVIDERS: Emergency Provider Student in an Organized Health Care Education/Training Program; PCP Internal Medicine
DX: S52.501A Unspecified fracture of the lower end of right radius, initial encounter for closed fracture (principal); S02.2XXA Fracture of nasal bones, initial encounter for closed fracture; S06.0X0A Concussion without loss of consciousness, initial encounter; G44.309 Post-traumatic headache, unspecified, not intractable; W01.10XA Fall on same level from slipping, tripping and stumbling with subsequent striking against unspecified object, initial encounter; Y93.9 Activity, unspecified; Y92.9 Unspecified place or not applicable; Y99.9 Unspecified external cause status; Z79.899 Other long term (current) drug therapy; Z87.891 Personal history of nicotine dependence
CPT/HCPCS: 29105; 70450; 70486; 73110; 99284

== ENCOUNTER → 2020-12-15 08:38 | Outpatient (BNVA) | payer OTHER, SELFPAY | PROVIDERS: PCP Internal Medicine; Visit Provider Physician Assistant | DX: S52.501A Unspecified fracture of the lower end of right radius, initial encounter for closed fracture (principal) | CPT/HCPCS: 99202 ==

== ENCOUNTER 2020-12-16 07:59 | Day surgery (SDC) | payer OTHER, SELFPAY ==
--- NOTE | 2020-12-15 10:51 | HO.ANESPROP2 ---
Documented by User: Charo Murillo NP 12/15/20 10:52 HPI - Anesthesia Eval Consult details Narrative: 65yo F for Right Radius Distal ORIF s/p cubitall tunnel repair 08/2020 with GA-LMA 4 PMFSH Active Problems Active Problems: All Active Problems (Updated 12/15/20 @ 09:24 by Theo Smith PA-C) Distal radius fracture, right (Acute) Carpal tunnel syndrome of left wrist (Acute) IgG deficiency (Acute) Flu-like symptoms (Acute) Elbow pain, left (Acute) Lateral epicondylitis, left elbow (Acute) Paresthesia of hand, bilateral (Acute) Traumatic injury of chest wall (Acute) Trigger finger, right ring finger (Acute) Carpal tunnel syndrome of right wrist (Acute) Cubital tunnel syndrome on right (Acute) Neuropathy (Acute) Interstitial cystitis (Acute) Cervical radiculopathy (Acute) Failed back syndrome, lumbar (Acute) Lumbar spondylosis (Acute) Primary osteoarthritis, right hand (Acute) Cervical stenosis of spinal canal (Acute) Tennis elbow (Acute) Chronic narcotic dependence (Acute) Pain management (Acute) Allergic rhinitis (Acute) Muscle spasm (Acute) Dyspepsia (Acute) Depression, major, recurrent (Acute) Vitamin D deficiency (Acute) Iron deficiency (Acute) Restless leg syndrome (Acute) Spinal stenosis at L4-L5 level (Acute) Past Medical History Medical History Allergic rhinitis Cervical radiculopathy Cervical stenosis of spinal canal Chronic narcotic dependence Depression, major, recurrent Diverticulosis Dyspepsia Failed back syndrome, lumbar History of sleep apnea Hx LEEP (loop electrosurgical excision procedure), cervix, Hx of degenerative disc disease IBS (irritable bowel syndrome) Interstitial cystitis Iron deficiency Lumbar spondylosis Migraines Muscle spasm Overactive bladder Pain management Primary osteoarthritis, right hand Restless leg syndrome Spinal stenosis at L4-L5 level Tennis elbow Vitamin D deficiency Family History Family History Father Leukemia HTN (hypertension) CVD (cerebrovascular disease) Mother HTN (hypertension) Alzheimer disease Afib Maternal Grandmother Uterine cancer Maternal Grandfather History of heart attack CVD (cardiovascular disease) Paternal Grandmother History of heart attack CVD (cardiovascular disease) Paternal Grandfather CVD (cardiovascular disease) Maternal Aunt Cervical cancer Emphysema lung Surgical History Surgical History History of cystoscopy (01/27/14) History of endometrial ablation History of laparoscopic appendectomy (1988) History of lumbar surgery (2010) Hx of bilateral breast reduction surgery Hx of colonoscopy (01/16/16) Hx of hysterectomy, total (01/2013) Hx of right knee surgery (2010) Social History Social History Household Members Other:: lives with brother Alcohol intake: current Alcohol intake frequency: a few times a month Patient Tobacco Use Status: Former Tobacco user Quit Date: 4yrs ago Use of substances other than those prescribed or required for medical reasons: Yes Substance Use Frequency: Daily Are you DNR?: No Advance Directives: No Advance Directives Information Provided: Yes Current occupational status: disabled Current occupation: [employer]. lt hand Meds Allergies Allergy/AdvReac Type Severity Reaction Status Date / Time codeine [CODEINE] Allergy Severe SWELLING Verified 12/15/20 08:54 erythromycin base Allergy Intermediate TOPICAL Verified 12/15/20 08:54 [Erythromycin Base] ERYTHROMYCIN- SKIN IRRITATION Home Medications Medication Instructions Recorded Confirmed Last Taken Type cetirizine 10 mg tablet 20 mg PO BID 01/06/20 09/10/20 Unknown History fluticasone propionate 50 2 spray INTRANASAL DAILY 01/06/20 09/10/20 Unknown History mcg/actuation nasal spray,suspension pramipexole 1.5 mg tablet 1.5 mg PO BEDTIME 01/06/20 09/10/20 Unknown History propranolol 20 mg tablet 20 mg PO BEDTIME 01/06/20 09/10/20 Unknown History sumatriptan succinate 50 mg tablet 50 mg PO DAILY PRN 01/06/20 09/10/20 Unknown History triamcinolone acetonide 0.1 % 1 applic TOPICAL BID PRN 01/06/20 09/10/20 Unknown History topical cream Exam Exam Date and Time: December 15, 2020 1051 Assessment and Plan Assessment Anesthesia Assessment: Chart Reviewed Documented by User: Anni Wiseman MD 12/16/20 10:46 [facility] Past Medical History Medical History Allergic rhinitis Cervical radiculopathy Cervical stenosis of spinal canal Chronic narcotic dependence Depression, major, recurrent Diverticulosis Dyspepsia Failed back syndrome, lumbar History of sleep apnea Hx LEEP (loop electrosurgical excision procedure), cervix, Hx of degenerative disc disease IBS (irritable bowel syndrome) Interstitial cystitis Iron deficiency Lumbar spondylosis Migraines Muscle spasm Overactive bladder Pain management Primary osteoarthritis, right hand Restless leg syndrome Spinal stenosis at L4-L5 level Tennis elbow Vitamin D deficiency Family History Family History Father Leukemia HTN (hypertension) CVD (cerebrovascular disease) Mother HTN (hypertension) Alzheimer disease Afib Maternal Grandmother Uterine cancer Maternal Grandfather History of heart attack CVD (cardiovascular disease) Paternal Grandmother History of heart attack CVD (cardiovascular disease) Paternal Grandfather CVD (cardiovascular disease) Maternal Aunt Cervical cancer Emphysema lung Family history of problems with anesthesia: No Surgical History Surgical History History of cystoscopy (01/27/14) History of endometrial ablation History of laparoscopic appendectomy (1988) History of lumbar surgery (2010) Hx of bilateral breast reduction surgery Hx of colonoscopy (01/16/16) Hx of hysterectomy, total (01/2013) Hx of right knee surgery (2010) History of Problems with Anesthesia: No Social History Social History Household Members Other:: lives with brother Alcohol intake: current Alcohol intake frequency: a few times a month Patient Tobacco Use Status: Former Tobacco user Quit Date: 4yrs ago Use of substances other than those prescribed or required for medical reasons: Yes Substance Use Frequency: Daily Are you DNR?: No Advance Directives: No Advance Directives Information Provided: Yes Current occupational status: disabled 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 Meds Allergies Allergy/AdvReac Type Severity Reaction Status Date / Time codeine [CODEINE] Allergy Severe SWELLING Verified 12/15/20 08:54 erythromycin base Allergy Intermediate TOPICAL Verified 12/15/20 08:54 [Erythromycin Base] ERYTHROMYCIN- SKIN IRRITATION Home Medications Medication Instructions Recorded Confirmed Last Taken Type cetirizine 10 mg tablet 20 mg PO BID 01/06/20 09/10/20 Unknown History fluticasone propionate 50 2 spray INTRANASAL DAILY 01/06/20 09/10/20 Unknown History mcg/actuation nasal spray,suspension pramipexole 1.5 mg tablet 1.5 mg PO BEDTIME 01/06/20 09/10/20 Unknown History propranolol 20 mg tablet 20 mg PO BEDTIME 01/06/20 09/10/20 Unknown History sumatriptan succinate 50 mg tablet 50 mg PO DAILY PRN 01/06/20 09/10/20 Unknown History triamcinolone acetonide 0.1 % 1 applic TOPICAL BID PRN 01/06/20 09/10/20 Unknown History topical cream Exam Airway Mallampati Class: II TM Dist: >3cm Neck ROM: Full Loose/Missing/Broken Teeth: Yes and Upper Assessment and Plan Assessment Anesthesia Assessment: Anesthesia Plan Discussed Final Anesthetic Review Family History of Problems with Anesthesia: No History of Problems with Anesthesia: No NPO: Yes ASA Class: III Final Preanesthetic Review: No Changes in Pt Med Stat, Meds/Allgs Chart Reviewed, Consent Obtained/Reviewed and Anes Risks/Benef Reviewed Patient Risk: Intermediate Procedure Risk: Low Assessment/Block/Sedation in SS: Assess/Block/Sedation-SS Anesthetic Plan Anesthetic Plan: MAC: and Regional Block Disposition: Standard PACU
--- NOTE | ~2020-12-16 | FL_ITS ---
EXAMINATION: XR FLUOROSCOPY WITH IMAGES CLINICAL INFORMATION: Distal radial fracture COMPARISON: Right wrist 12/13/2020 TECHNIQUE: Fluoroscopy performed by Dr. Concha Betancourt. Fluoroscopy time: 20.8 seconds DAP: 42841.3 mGycm2 Images: 3 FINDINGS: There is a distal radial fracture stabilized with a dorsal metallic plate and screws. The fracture fragments are in satisfactory alignment. There is no change in the ulnar styloid process. There is mild soft tissue swelling. FL/FL guidance in OR IMPRESSION: Status post ORIF the distal radial fracture is stabilized in alignment.
[2020-12-16 08:26] VITALS: BP 120/43; PULSE 80; RESP 16; TEMP 36.9; O2SAT 96; BMI 25.7
[2020-12-16] MEDS: Lactated Ringers 1,000 ML 100 ML IVCONT (08:46)
--- NOTE | 2020-12-16 10:00 | MHC.SHP ---
Pre-Procedural Eval Section A Date of Service: 12/16/20 The patient is an INPATIENT: No Changes since office visit: No Cold of Flu in the past 2 weeks, No New Medical Problems, No Changes in Medication and No Patient answered all questions The History & Physical has been completed within 30 days and I have reviewed it.: Yes Section B Chief Complaint: Facture of lower end right radius Allergies: Allergies Allergy/AdvReac Type Severity Reaction Status Date / Time codeine [CODEINE] Allergy Severe SWELLING Verified 12/15/20 08:54 erythromycin base Allergy Intermediate TOPICAL Verified 12/15/20 08:54 [Erythromycin Base] ERYTHROMYCIN- SKIN IRRITATION Plan I have reviewed the history and physical and performed a pertinent physical examination on my patient. No changes have occurred unless specified.
--- NOTE | 2020-12-16 10:00 | W.PM.OPN ---
Operative Note Operative Note Date of Service: 12/16/20 Narrative: Operative Note Narrative: Preop diagnosis: 1. Right Distal radius fracture Postop diagnosis: Same Procedure: 1. Right Distal radius fracture open reduction internal fixation, extra-articular Surgeon: Concha Betancourt MD Anesthesia: Mac plus regional block Findings: Distal radius fracture Implants: A 3 hole Accu Med volar locking plate, with 5 x 2.3 mm locking pegs/screws, and 3 3.5 mm cortical screws Tourniquet time: 27minutes EBL: 5.0 ml Specimen: None Drains: None Complications: None Disposition: Brought to the recovery room in stable condition Plan: Follow-up in 10-14 days for wound check, suture removal and postop radiographs The patient will be placed in a volar wrist splint. Encouraged no lifting of anything heavier than a cell phone. Please encourage active and passive range of motion of the digits. Follow-up at 4-5 weeks postop for repeat radiographs. Indications: The patient is a 65 year old woman with right distal radius fracture . The risks and benefits of operative treatment, including but not limited to risk of damage to blood vessels, nerves, tendons, infection, recurrence, persistent pain or numbness, incomplete resolution of preoperative symptoms, or need for further surgery were discussed with the patient and they wished to proceed with surgery. Procedure: Once consent was obtained patient was brought back to the operating suite and placed in the operating table in a supine position. A regional block was performed by the anesthesia team. Perioperative antibiotics and anesthesia was administered by the anesthesia team. A tourniquet was applied to the proximal aspect of the right upper extremity and the limb was prepped and draped in a standard surgical fashion. The limb was elevated exsanguinated with Esmarch bandage and the tourniquet inflated to 250 mm of mercury for a total tourniquet time of 27 minutes. The FluoroScan was used throughout the case to assess our reduction, and facilitate implant placement. A gentle closed reduction was 1st performed on the patient's right distal radius fracture. Was assessed radiographically before proceeding with the reduction internal fixation. I then made an 8 cm longitudinal incision over the distal aspect of the flexor carpi radialis tendon. The incision was made through the skin to the subcutaneous tissue using a 15. Blade. Then carefully dissected down to flexor carpi radialis tendon she tenotomy scissors. The FCR tendon sheath was then incised longitudinally using tenotomy scissors under direct visualization. The FCR tendon was then retracted ulnarly. I then made a longitudinal incision in the volar forearm fascia through the floor of FCR tendon sheath using tenotomy scissors under direct visualization. I identified the interval between the radial artery and the flexor tendons. This interval was developed further with my index finger, releasing some of the muscular fibers of the flexor pollicis longus. A dull weatlander retractor was then placed. I then created an ulnarly based flap of the pronator quadratus by releasing the radial and distal edges using a 15. Blade. A Jimenez elevator was used to elevate the pronator quadratus from the volar surface of the distal radius. This then revealed to us our distal radius fracture. An open reduction was then performed on our distal radius fracture. I then placed a short narrow 3 hole Accu Med volar locking plate on the volar surface of the distal radius. I placed a single K-wire through the distal aspect of the plate and into the distal radius. This was assessed using fluoroscopic images. I was satisfied with the placement of our plate. I then placed 5 X 2.3 mm locking screws/pegs in the distal aspect of the plate and distal radius by 1st drilling bicortically with a 1.8 mm drill bit, measuring with a depth gauge, and placing the appropriate length locking screws/pegs. The placement of our plate and screws was then assessed again using fluoroscopic images. The once satisfied with the placement of the volar locking plate and screws on the distal aspect of the distal radius, the plate was then reduced to the shaft of the radius. I then placed 3 3.5 mm cortical screws to the proximal aspect of the plate and into the shaft of the radius. This was done by 1st drilling bicortically with a 2.8 mm drill bit, measuring with a depth gauge, and placing the appropriate length screw. Final radiographs were then obtained. The DRUJ was assessed and found to be stable on exam. I was satisfied with our reduction and placement of all implants. At this point the wound was irrigated with normal saline. The pronator quadratus was reduced back over the volar locking plate using some 3-0 Vicryl suture material. The tourniquet was then deflated and hemostasis was obtained with a brief period of local pressure and bipolar monopolar electrocautery. The subcutaneous layer was then reapproximated using some 4-0 Vicryl suture, and the skin edges were reapproximated using some 5 0 Prolene suture. The wound was then infiltrated with some 1% lidocaine with epinephrine postop pain control. A sterile dressing and a short dorsal splint allowing for active flexion and extension of the digits was applied. The patient appears to have tolerated the procedure well and with no complications. All digits were well vascularized conclusion of the case.
[2020-12-16 11:27] VITALS: BP 105/52; PULSE 72; RESP 16; TEMP 36.1; O2SAT 97
[2020-12-16 11:42] VITALS: BP 100/51; PULSE 70; RESP 18; TEMP 36.2; O2SAT 97
== END 2020-12-16 12:17 ==
LOC: HO.SSS 08:00
PROVIDERS: PCP Internal Medicine; Visit Provider Orthopaedic Surgery
PROC: (CPT 25607; principal; 2020-12-16 09:30)
DX: S52.551A Other extraarticular fracture of lower end of right radius, initial encounter for closed fracture (principal); W01.0XXA Fall on same level from slipping, tripping and stumbling without subsequent striking against object, initial encounter; Y93.01 Activity, walking, marching and hiking; Y92.000 Kitchen of unspecified non-institutional (private) residence as the place of occurrence of the external cause; Y99.8 Other external cause status; J30.9 Allergic rhinitis, unspecified; M19.041 Primary osteoarthritis, right hand; Z79.51 Long term (current) use of inhaled steroids; Z79.899 Other long term (current) drug therapy; Z88.8 Allergy status to other drugs, medicaments and biological substances; Z87.891 Personal history of nicotine dependence
CPT/HCPCS: 25607; C1713; C1769; J0690; J1100; J2250; J2405

== ENCOUNTER 2020-12-27 13:08 | Outpatient (REF) | payer OTHER, SELFPAY ==
--- NOTE | ~2020-12-27 | XR_ITS ---
EXAMINATION: XR WRIST, RIGHT CLINICAL INFORMATION: Right wrist pain. COMPARISON: 12/13/2020 TECHNIQUE: PA, lateral, and oblique views of the right wrist. FINDINGS: Since 12/13/2020, the patient has undergone open reduction and fixation of a distal radial fracture. A plate and screw device is present and hardware appears intact. No new fractures are seen. A fracture of the ulnar styloid is present, better appreciated on the 12/13/2020 films. XR/XR wrist RT min 3V IMPRESSION: Status post open reduction internal fixation distal radial fracture.
== END 2020-12-27 13:09 | disposition home or self-care (01) ==
LOC: HO.HOSX 13:08
PROVIDERS: Visit Provider Orthopaedic Surgery
DX: S52.501D Unspecified fracture of the lower end of right radius, subsequent encounter for closed fracture with routine healing (principal)
CPT/HCPCS: 73110; 99212

== ENCOUNTER 2021-01-07 14:54 | Outpatient (REF) | payer OTHER, SELFPAY ==
--- NOTE | ~2021-01-07 | XR_ITS ---
EXAMINATION: XR CHEST CLINICAL INFORMATION: Other specified signs and symptoms involving respiratory system COMPARISON: Previous chest x-rays most recent July 2020 TECHNIQUE: 2 views of the chest were obtained. FINDINGS: The cardiac and mediastinal contours are normal. The lungs are clear. There is no pleural effusion or pneumothorax. There are degenerative changes of the spine. XR/XR chest 2V IMPRESSION: Unremarkable examination.
== END 2021-01-07 14:55 | disposition home or self-care (01) ==
LOC: HO.HMGCX 14:54
PROVIDERS: PCP Internal Medicine; Visit Provider Physician Assistant
DX: Z20.822 Contact with and (suspected) exposure to COVID-19 (principal); R09.89 Other specified symptoms and signs involving the circulatory and respiratory systems; J06.9 Acute upper respiratory infection, unspecified
CPT/HCPCS: 71046; U0003; U0005

== ENCOUNTER 2021-01-19 14:22 | Outpatient (REF) | payer OTHER, SELFPAY | END 2021-01-19 14:23 | disposition home or self-care (01) | LOC: HO.LAB 14:22 | DX: N30.10 Interstitial cystitis (chronic) without hematuria (principal) | CPT/HCPCS: 87086; 87088; 87186; 99212 ==

== ENCOUNTER 2021-01-26 08:24 | Outpatient (REF) | payer OTHER, SELFPAY ==
--- NOTE | ~2021-01-26 | XR_ITS ---
EXAMINATION: XR WRIST, RIGHT CLINICAL INFORMATION: Distal radial fracture, post reduction. Follow-up. COMPARISON: Radiographs right wrist 12/27/2020, 12/13/2020 TECHNIQUE: PA, lateral, and oblique views of the right wrist. FINDINGS: Distal radial fracture is reduced with volar side plate and screws. The hardware is intact. The fracture fragments are in near-anatomic alignment. The ulnar variance is neutral. Fractured ulnar styloid again noted. No acute bony abnormality. XR/XR wrist RT min 3V IMPRESSION: Status post open reduction internal fixation distal radial fracture. Hardware intact.
== END 2021-01-26 08:25 | disposition home or self-care (01) ==
LOC: HO.HOSX 08:24
PROVIDERS: Visit Provider Orthopaedic Surgery
DX: S52.501A Unspecified fracture of the lower end of right radius, initial encounter for closed fracture (principal); G56.02 Carpal tunnel syndrome, left upper limb
CPT/HCPCS: 73110; 99212

== ENCOUNTER 2021-01-28 13:27 | Outpatient (REF) | payer OTHER, SELFPAY ==
[2021-01-28 16:11] LABS: MANUAL DIFF FLAG NO
[2021-01-28 16:12] LABS: Basophils Percent Auto 0.7 % (0-2); Eosinophils Absolute Auto 0.1 X10*3/uL (0.0-0.4); Eosinophils Percent Auto 2.2 % (0-4); Hematocrit 37.2 % (37-47); Hemoglobin 12.1 g/dl (12.0-16.0); Imm Gran Abs Auto 0.01 X10*3/uL (0.00-0.03); Imm Gran Pct Auto 0.2 % (0.0-0.4); Lymphocytes Absolute Auto 1.7 X10*3/uL (1.2-4.9); Lymphocytes Percent Auto 30.9 % (20-40); Mean Corpuscular HGB Conc 32.5 g/dl (31.0-35.0); Mean Corpuscular Hemoglobin 33.3 pg (27.0-33.0); Mean Corpuscular Volume 102.5 fL (80-98); Mean Platelet Volume 11.2 fL (9.4-12.3); Monocytes Absolute Auto 0.5 X10*3/uL (0.1-1.2); Monocytes Percent Auto 8.4 % (2-11); Neutrophils Absolute Auto 3.1 X10*3/uL (2.0-8.3); Neutrophils Percent Auto 57.6 % (45-73); Platelet Count 304 X10*3/uL (160-400); Red Blood Count 3.63 X10*6/uL (4.20-5.50); Red Cell Distribution Width 12.5 % (11.0-16.0); White Blood Count 5.3 X10*3/uL (4.8-10.8)
[2021-01-28 16:26] LABS: Alanine Aminotransferase 19 U/L (0-31); Albumin Level 4.5 g/dL (3.5-5.0); Alkaline Phosphatase 89 U/L (39-117); Anion Gap 15 (12-20); Aspartate Amino Transferase 25 U/L (5-31); Bilirubin Total 0.2 mg/dL (0.0-1.0); Blood Urea Nitrogen 16 mg/dL (9-16); Calcium 9.2 mg/dL (8.4-10.2); Carbon Dioxide 22 mmol/L (22-29); Chloride 107 mmol/L (96-108); Estimated Glomerular Filt Rate 55; Glucose Random 93 mg/dL (60-115); Potassium 4.6 mmol/L (3.3-5.1); Sodium 139 mmol/L (135-145); Total Protein 6.9 g/dL (6.5-8.0)
[2021-01-28 16:46] LABS: Ferritin 153 ng/mL (10-250); TSH reflex Free T4 1.13 uIU/mL (0.32-4.0)
== END 2021-01-28 13:28 | disposition home or self-care (01) ==
LOC: HO.HMGCLDS 13:27
PROVIDERS: PCP Internal Medicine; Visit Provider Internal Medicine
DX: E61.1 Iron deficiency (principal); F33.9 Major depressive disorder, recurrent, unspecified; M62.838 Other muscle spasm; R10.13 Epigastric pain
CPT/HCPCS: 36415; 80053; 82728; 84443; 85025

== ENCOUNTER → 2021-02-21 08:57 | Outpatient (BNVA) | payer OTHER, SELFPAY | PROVIDERS: PCP Internal Medicine | DX: Z13.89 Encounter for screening for other disorder (principal) | CPT/HCPCS: Q3014 ==

== ENCOUNTER 2021-03-02 09:30 | Outpatient (RCR) | payer OTHER, SELFPAY ==
--- NOTE | 2021-02-11 10:47 | MHC.OT.OEV ---
[address] [phone] F: [phone] Occupational Therapy Evaluation Diagnosis: Right DRF, post-op ORIF Date of Onset: 12/12/20 Date of Surgery: 12/16/20 Attending Provider: Dr Betancourt Prescribed Treatment: Eval and Treat History of Current Condition: 65 yo female tripped over tripped over a chair in her kitchen, resulted in right distal radius fracture, broken nose, and missing front tooth. She went to the ED that night and was referred to [facility] and now is post-op ORIF w/ Dr Betancourt 12/16/20. 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 Difficulty using her mouse at work, holding her phone in right hand Sleep: No issues due to wrist fracture Driving: No issues Pain Assessment Pain Score: 2 Pain Scale Used: Numeric (0 - 10) Pain Location and Description: Pain free at most times Discomfort w/ rotation Aggravating Factors: Rotation, holding her phone in palm Alleviating Factors: Ibuprophen and Tylenol for arthritis at baseline Skin and Soft Tissue Assessment Skin and Soft Tissue: Comments: Well healed volar surgical scar Nerve assessment Ulnar Nerve: WNL Median Nerve: WNL Radial Nerve: WNL Comments: Sensory Assessment Temperature: WFL Light Touch: WFL Proprioception: WFL Comments: Pt reports 'numnbess' over ulnar side of dorsal forearm, intact 3.61 [place] Jorge A B/L volar and dorsal hands and forearms Edema Assessment Upper Extremity: WNL Dexterity Assessment Dexterity: WNL Special Tests Comments: Pain a/ palpation to Ulnar Fovea Weightbearing test R 25lb L 45lb AROM(PROM) Strength Shoulder Flexion: Extension: Abduction: Internal Rotation: External Rotation: Comments: WFL Flexion: Extension: Abduction: Internal Rotation: External Rotation: Comments: Elbow Flexion: Extension: Pronation: Supination: Comments: WFL Flexion: Extension: Pronation: Supination: Comments: Rotation WFL, feels pull/discomort w/ end range pro/sup Wrist Flexion: R 60 L 76 Extension: R 58 L 66 Ulnar Deviation: Radial Deviation: Comments: Flexion: Extension: Ulnar Deviation: Radial Deviation: Comments: Digits Index MCP: PIP: DIP: Long MCP: PIP: DIP: Ring MCP: PIP: DIP: Small MCP: PIP: DIP: Comments: WFL Gross Grasp: R 30lb L 60lb Lateral Pinch: Two-Point Pinch: Three-Jaw Alessio: Comments: Patient Education Primary Language: Cymraes Spool Worker Required: No Current Knowledge: Understands information with skills for self-management Teaching Method: Demonstration Handouts Verbal Education Needs Identified on Evaluation: ADL's Disease Information Equipment Use Exercise Pain Safety How did patient/family demonstrate learning? Patient demonstrates Patient verbalizes Barriers to Learning: None Readiness for Learning: Accepting Who was educated? Patient Comments: Plan of Care Assessment: 65 yo left hand dominant female presents about 8 weeks s/p right distal radius ORIF due to radial styloid fracture. She is doing well, slightly decrease ROM and decreased gross grasp. Her primary complaint at this time is discomfort w/ end range rotation, consistent w/ DRUJ injury. 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 I anticipate she will do well w/ course of occupational therapy for optimal gains of strength and ROM with attention to pain management. STG Duration: 2 weeks Short Term Goals: Pain free w/ light ADL tasks Good follow through w/ DRUJ protection strategies Gross Grasp 40lb Wrist ext/flex 65/65 LTG Duration: 4 weeks Usp Goals: Pt to demo lift and carry 20lb box w/ good joint protection and minimal pain Gross grasp 50lb Ind w/ progression of strengthening exercises Frequency and Duration: The patient will be seen 2x/wk for 4 weeks Treatment Plan: Therapeutic Exercise Therapeutic Activity Home Exercise Program Patient Education ADL Training Paraffin Fluidotherapy MHP Cold Packs Joint Mobilization Soft Tissue Mobilization Kinesiotaping Electronically Signed By: Laurence Garza OTR/L Please sign and return to therapist, Thank you for your referral.
--- NOTE | 2021-03-02 11:12 | MHC.OT.DC ---
[address] [phone] F: [phone] Occupational Therapy Discharge Note Provider: Dr Betancourt Diagnosis: Right DRF, post-op ORIF Date of Surgery: 12/16/20 Date of Evaluation: 02/11/21 Date of Discharge: 03/02/21 Treatments to Date: 5 Discharge Status: Achieved Goals Improved Function Independent with HEP Discharge Summary: Cristina is 11 weeks post-op right distal radius fracture and repair. She has done well in therapy and continues to have improvements w/ overall good strength and range. She has some discomfort in ulnar wrist, but has done well with joint protection and activity modification and will continue progression of isometric and PREs as part of home program. Electronically Signed By: SOPHIE Ring/Bucky Reviewed/agree with student documentation: N/A Therapist: Please Sign and return to therapist, thank you for your referral.
== END 2021-03-02 11:13 | disposition home or self-care (01) ==
LOC: HO.OT 09:30
PROVIDERS: PCP Internal Medicine; Visit Provider Orthopaedic Surgery
DX: S52.501D Unspecified fracture of the lower end of right radius, subsequent encounter for closed fracture with routine healing (principal)
CPT/HCPCS: 97033; 97035; 97110; 97165; 97760

== ENCOUNTER 2021-03-04 16:27 | Outpatient (REF) | payer OTHER, SELFPAY ==
[2021-03-04 17:28] LABS: Influenza A PCR NEGATIVE (Negative); Influenza B PCR NEGATIVE (Negative); Resp Syncy Virus RNA Qual PCR NEGATIVE (Negative); SARS COV2 PCR INHOUSE POSITIVE (Negative)
== END 2021-03-04 16:28 | disposition home or self-care (01) ==
LOC: HO.LNP 16:27
PROVIDERS: Visit Provider Internal Medicine
DX: R43.9 Unspecified disturbances of smell and taste (principal); Z20.822 Contact with and (suspected) exposure to COVID-19
CPT/HCPCS: 0241U

== ENCOUNTER → 2021-06-28 09:56 | Outpatient (BNVA) | payer OTHER, SELFPAY | PROVIDERS: PCP Internal Medicine; Visit Provider Nurse Practitioner Family | DX: M65.331 Trigger finger, right middle finger (principal); R20.0 Anesthesia of skin; R20.2 Paresthesia of skin | CPT/HCPCS: 99212 ==

== ENCOUNTER 2021-07-07 11:15 | Day surgery (SDC) | payer OTHER, SELFPAY ==
[2021-07-07 11:37] VITALS: BP 114/45; PULSE 54; RESP 16; TEMP 36.8; O2SAT 96; BMI 25.4
--- NOTE | 2021-07-07 12:30 | MHC.SHP ---
Pre-Procedural Eval Section A Date of Service: 07/07/21 The patient is an INPATIENT: No Changes since office visit: No Cold of Flu in the past 2 weeks, No New Medical Problems, No Changes in Medication and No Patient answered all questions The History & Physical has been completed within 30 days and I have reviewed it.: Yes Section B Chief Complaint: Anesthesia of skin,trigger finger Allergies: Allergies Allergy/AdvReac Type Severity Reaction Status Date / Time codeine [CODEINE] Allergy Severe SWELLING Verified 06/28/21 10:45 erythromycin base Allergy Intermediate TOPICAL Verified 06/28/21 10:45 [Erythromycin Base] ERYTHROMYCIN- SKIN IRRITATION Plan I have reviewed the history and physical and performed a pertinent physical examination on my patient. No changes have occurred unless specified.
--- NOTE | 2021-07-07 12:32 | W.PM.OPN ---
Operative Note Operative Note Date of Service: 07/07/21 Narrative: Operative Note Preop diagnosis: 1. right middle finger Trigger finger Postop diagnosis: 1. right middle finger Trigger finger Procedure: 1. right middle finger A1 nusrat release Surgeon: Concha Betancourt MD Anesthesia: local block using 1% lidocaine with epinephrine Findings: No locking or catching after A1 nusrat release EBL: Less than 5 mL Tourniquet time: None Specimens: None Complications: None Disposition: Brought to recovery room in stable condition Plan: Follow-up for 10-14 days for wound check and suture removal Indications: The patient is 66 years old, with a right middle finger trigger finger that has been unresponsive to nonoperative management. The risks and benefits of operative treatment including but not limited to risk of damage to blood vessels, nerves, tendons, infection, persistent pain, persistent symptoms, recurrence or possible need for additional surgery were discussed with the patient and the patient wishes to proceed with surgery. Procedure: Once consent was obtained a local block was performed in the preop area using a combination of 1% lidocaine with epinephrine. The patient was then brought back to the operating suite and placed on the operative table in supine position. A tourniquet was applied to the proximal aspect of the right upper extremity and the limb was prepped and draped in a standard surgical fashion. Once assured that we had a good block, a 1.5 cm oblique incision was made centered over the A1 nusrat of the right middle finger . The incision was made through the skin to the subcutaneous tissues using a #15 blade. Careful dissection was made down to the level of the A1 nusrat using tenotomy scissors, with care being taken to protect the nearby neurovascular structures. A longitudinal incision was made in the A1 nusrat 1st using a #15 blade, then using tenotomy scissors under direct visualization. The A1 nusrat was noted to be thickened. Following our A1 nusrat release, we no longer saw any locking or catching of the digit with flexion and extension. Once satisfied with our A1 nusrat release the wound was copiously irrigated with normal saline and hemostasis was obtained with a brief period of local pressure. The skin edges were reapproximated with some 5.0 nylon suture material and a sterile dressing was applied. The patient appears to have tolerated the procedure well and with no complications. All digits were well vascularized at the conclusion of the case.
[2021-07-07 13:40] VITALS: BP 116/50; PULSE 55; RESP 16; TEMP 36.9; O2SAT 98
== END 2021-07-07 14:01 | disposition home or self-care (01) ==
PROVIDERS: PCP Internal Medicine; Visit Provider Orthopaedic Surgery
PROC: (CPT 26055; principal; 2021-07-07 12:30)
DX: M65.331 Trigger finger, right middle finger (principal); R20.0 Anesthesia of skin; R20.2 Paresthesia of skin; M19.041 Primary osteoarthritis, right hand; M77.10 Lateral epicondylitis, unspecified elbow; M54.12 Radiculopathy, cervical region; M48.02 Spinal stenosis, cervical region; M48.061 Spinal stenosis, lumbar region without neurogenic claudication; M47.816 Spondylosis without myelopathy or radiculopathy, lumbar region; G43.909 Migraine, unspecified, not intractable, without status migrainosus; F11.20 Opioid dependence, uncomplicated; Z88.8 Allergy status to other drugs, medicaments and biological substances; Z98.890 Other specified postprocedural states; Z87.891 Personal history of nicotine dependence
CPT/HCPCS: 26055; J0171

== ENCOUNTER → 2021-07-20 09:41 | Outpatient (BNVA) | payer OTHER, SELFPAY | PROVIDERS: PCP Internal Medicine; Visit Provider Orthopaedic Surgery | DX: M65.331 Trigger finger, right middle finger (principal) | CPT/HCPCS: 99212 ==

== ENCOUNTER 2021-08-31 07:28 | Outpatient (REF) | payer OTHER, SELFPAY | END 2021-08-31 07:29 | disposition home or self-care (01) | LOC: HO.RADIR 07:28 | PROVIDERS: Visit Provider Internal Medicine | DX: M53.3 Sacrococcygeal disorders, not elsewhere classified (principal); Z53.9 Procedure and treatment not carried out, unspecified reason | CPT/HCPCS: J1040; Q9967 ==

== ENCOUNTER → 2021-09-01 11:07 | Outpatient (BNVA) | payer OTHER, SELFPAY | PROVIDERS: PCP Internal Medicine; Visit Provider Anesthesiology | DX: Z13.89 Encounter for screening for other disorder (principal) | CPT/HCPCS: Q3014 ==

== ENCOUNTER 2021-09-14 09:27 | Outpatient (REF) | payer OTHER, SELFPAY ==
--- NOTE | 2021-09-14 09:30 | EMG_ITS ---
HISTORY OF PRESENT ILLNESS: This is a 65-year-old woman who had right carpal tunnel release done about a year ago with relief, now comes in with left upper extremity symptoms and difficulty sleeping because of numbness that goes up the arm. She also has some cervical disk problems. PHYSICAL EXAMINATION: On examination, she is alert and oriented with normal intellectual functions. Cranial nerves II through XII are normal. Muscle tone and strength are normal in all 4 extremities. No Tinel or Phalen sign. IMPRESSION: Carpal tunnel syndrome, rule out cervical radiculopathy. Nerve conduction study: Mild carpal tunnel syndrome on the left. Normal EMG of the left C5-T1 innervated muscles. MD MELO Lopez/GUMARO / [id number]
== END 2021-09-14 09:28 | disposition home or self-care (01) ==
LOC: HO.NEURO 09:27
PROVIDERS: PCP Internal Medicine; Visit Provider Orthopaedic Surgery
DX: R20.0 Anesthesia of skin (principal); R20.2 Paresthesia of skin
CPT/HCPCS: 95885; 95910

== ENCOUNTER 2021-09-21 08:44 | Outpatient (REF) | payer OTHER, SELFPAY ==
[2021-09-21 11:23] LABS: MANUAL DIFF FLAG NO
[2021-09-21 11:30] LABS: Basophils Percent Auto 0.9 % (0-2); Eosinophils Absolute Auto 0.1 X10*3/uL (0.0-0.4); Eosinophils Percent Auto 2.4 % (0-4); Hematocrit 37.6 % (37.0-47.0); Hemoglobin 12.1 g/dl (12.0-16.0); Imm Gran Abs Auto 0.02 X10*3/uL (0.00-0.03); Imm Gran Pct Auto 0.5 % (0.0-0.4); Lymphocytes Absolute Auto 1.1 X10*3/uL (1.2-4.9); Lymphocytes Percent Auto 26.9 % (20-40); Mean Corpuscular HGB Conc 32.2 g/dl (31.0-35.0); Mean Corpuscular Hemoglobin 33.1 pg (27.0-33.0); Mean Corpuscular Volume 102.7 fL (80.0-98.0); Mean Platelet Volume 11.8 fL (9.4-12.3); Monocytes Absolute Auto 0.5 X10*3/uL (0.1-1.2); Monocytes Percent Auto 10.8 % (2-11); Neutrophils Absolute Auto 2.5 x10*3/uL (2.0-8.3); Neutrophils Percent Auto 58.5 % (45-73); Platelet Count 275 X10*3/uL (160-400); Red Blood Count 3.66 X10*6/uL (4.20-5.50); White Blood Count 4.2 X10*3/uL (4.8-10.8)
[2021-09-21 11:55] LABS: Alanine Aminotransferase 15 U/L (0-31); Albumin Level 4.4 g/dL (3.5-5.0); Alkaline Phosphatase 88 U/L (39-117); Anion Gap 12 (12-20); Aspartate Amino Transferase 21 U/L (5-31); Bilirubin Total 0.4 mg/dL (0.0-1.0); Blood Urea Nitrogen 19 mg/dL (9-16); Calcium 9.7 mg/dL (8.4-10.2); Carbon Dioxide 25 mmol/L (22-29); Chloride 106 mmol/L (96-108); Estimated Glomerular Filt Rate > 60; Glucose Random 105 mg/dL (60-115); Potassium 4.8 mmol/L (3.3-5.1); Sodium 138 mmol/L (135-145); Total Protein 6.8 g/dL (6.5-8.0)
[2021-09-22 23:52] LABS: LDL Cholesterol Direct 156 mg/dL (<100)
== END 2021-09-21 08:45 | disposition home or self-care (01) ==
LOC: HO.HMGCLDS 08:44
PROVIDERS: PCP Internal Medicine; Visit Provider Internal Medicine
DX: R10.13 Epigastric pain (principal); F33.9 Major depressive disorder, recurrent, unspecified; G62.9 Polyneuropathy, unspecified; I10 Essential (primary) hypertension; J30.9 Allergic rhinitis, unspecified; E61.1 Iron deficiency
CPT/HCPCS: 36415; 80053; 83721; 85025

== ENCOUNTER 2021-10-18 06:08 | Outpatient (REF) | payer OTHER, SELFPAY ==
--- NOTE | ~2021-10-18 | FL_ITS ---
EXAMINATION: XR FLUOROSCOPY WITH IMAGES CLINICAL INFORMATION: Sacrococcygeal disorders COMPARISON: None. TECHNIQUE: Fluoroscopy performed by Rose au Fluoroscopy time: 0.1 minutes DAP: 0.545 Gycm2 Images: 1 FINDINGS: There is a needle positioned along the inferior right SI joint and contrast opacifying the soft tissues for pain management. There is a joint space is maintained normal. FL/FL guidance in treatment room IMPRESSION: Fluoroscopy guidance was provided to referring physician for SI joint pain management.
== END 2021-10-18 06:09 | disposition home or self-care (01) ==
LOC: HO.RADIR 06:08
PROVIDERS: Visit Provider Anesthesiology
DX: M53.3 Sacrococcygeal disorders, not elsewhere classified (principal); M46.1 Sacroiliitis, not elsewhere classified
CPT/HCPCS: 27096

== ENCOUNTER → 2021-11-16 11:42 | Outpatient (BNVA) | payer OTHER, SELFPAY | PROVIDERS: PCP Internal Medicine; Visit Provider Nurse Practitioner Family | DX: M53.3 Sacrococcygeal disorders, not elsewhere classified (principal); Z98.890 Other specified postprocedural states | CPT/HCPCS: 99212 ==

== ENCOUNTER 2022-01-20 08:46 | Day surgery (SDC) | payer OTHER, SELFPAY ==
[2022-01-16 15:26] VITALS: BMI 26.7
--- NOTE | ~2022-01-20 | FL_ITS ---
EXAMINATION: XR FLUOROSCOPY WITH IMAGES CLINICAL INFORMATION: SI joint stimulator. Sacrococcygeal disorder. COMPARISON: Fluoroscopic spot image 10/18/2021 TECHNIQUE: Fluoroscopy performed by Dr. Hernán Overton. Fluoroscopy time: 0.2 minutes. Cumulative Dose: 3.34 mGy. DAP: 0.910 Gycm2. Images: 2. FINDINGS: There is a vertically orientated electrode stimulator overlying the right sacral wing with tip at the level lower aspect SI joints, just medial to the joint. There are some old orphan electrode fragments seen more medially, similar to prior spot image 10/18/2021. FL/FL guidance in OR IMPRESSION: Fluoroscopy for pain management procedure.
[2022-01-20 08:57] VITALS: BMI 26.6
[2022-01-20 09:06] VITALS: BP 112/69; PULSE 53; RESP 16; TEMP 36.6; O2SAT 97
--- NOTE | 2022-01-20 09:25 | HO.ANESPROP2 ---
[facility] Active Problems Active Problems: All Active Problems (Updated 01/20/22 @ 08:55 by Edith Diamond RN) IgG deficiency (Acute) Flu-like symptoms (Acute) Elbow pain, left (Acute) Lateral epicondylitis, left elbow (Acute) Paresthesia of hand, bilateral (Acute) Traumatic injury of chest wall (Acute) Trigger finger, right ring finger (Acute) Carpal tunnel syndrome of right wrist (Acute) Cubital tunnel syndrome on right (Acute) Neuropathy (Acute) Carpal tunnel syndrome of left wrist (Acute) Distal radius fracture, right (Acute) URI (upper respiratory infection) (Acute) Rhonchi at right lung base (Acute) Major depression, recurrent (Acute) Anxiety, generalized (Acute) Upper respiratory tract infection (Acute) Trigger finger, right middle finger (Acute) Headache syndrome (Acute) Hypertension, essential (Acute) Numbness and tingling in left hand (Acute) Sacroiliac joint pain (Acute) Eczematous dermatitis (Acute) Sacroiliitis (Acute) Urgency of micturition (Acute) Interstitial cystitis (Acute) UTI (urinary tract infection) (Acute) Interstitial cystitis (Acute) Cervical radiculopathy (Acute) Failed back syndrome, lumbar (Acute) Lumbar spondylosis (Acute) Primary osteoarthritis, right hand (Acute) Cervical stenosis of spinal canal (Acute) Tennis elbow (Acute) Chronic narcotic dependence (Acute) Pain management (Acute) Allergic rhinitis (Acute) Muscle spasm (Acute) Dyspepsia (Acute) Depression, major, recurrent (Acute) Vitamin D deficiency (Acute) Iron deficiency (Acute) Restless leg syndrome (Acute) Spinal stenosis at L4-L5 level (Acute) Past Medical History Medical History Allergic rhinitis Cervical radiculopathy Cervical stenosis of spinal canal Chronic narcotic dependence Depression, major, recurrent Diverticulosis Dyspepsia Failed back syndrome, lumbar History of sleep apnea Hx LEEP (loop electrosurgical excision procedure), cervix, Hx of degenerative disc disease IBS (irritable bowel syndrome) Interstitial cystitis Interstitial cystitis Iron deficiency Lumbar spondylosis Migraines Muscle spasm Overactive bladder Pain management Primary osteoarthritis, right hand Restless leg syndrome Sacroiliitis Sleep apnea Spinal stenosis at L4-L5 level Tennis elbow Urgency of micturition UTI (urinary tract infection) Vitamin D deficiency Functional capacity: independent ambulation Patient : No Family History Family History Father Leukemia HTN (hypertension) CVD (cerebrovascular disease) Mother HTN (hypertension) Alzheimer disease Afib Maternal Grandmother Uterine cancer Maternal Grandfather History of heart attack CVD (cardiovascular disease) Paternal Grandmother History of heart attack CVD (cardiovascular disease) Paternal Grandfather CVD (cardiovascular disease) Maternal Aunt Cervical cancer Emphysema lung Family history of problems with anesthesia: No Surgical History Surgical History History of cystoscopy (01/27/14) History of endometrial ablation History of laparoscopic appendectomy History of lumbar surgery Hx of bilateral breast reduction surgery Hx of colonoscopy Hx of hysterectomy, total Hx of right knee surgery S/P trigger finger release History of Problems with Anesthesia: No Social History Social History Household Members Other:: lives with brother Housing: Other Alcohol intake: current Alcohol intake frequency: a few times a month Patient Tobacco Use Status: Former Tobacco user Quit Date: 4yrs ago Tobacco use type: Cigarette Years Smoked: 45 years e-Cigarette/Vaping Use: Never Used Use of substances other than those prescribed or required for medical reasons: Yes Are you DNR?: No Advance Directives: No Advance Directives Information Provided: Yes Patient : No service: No Current occupational status: disabled Current occupation: [employer] hand Cognitive needs: No Hearing needs: No Vision needs: Yes (contacts) Meds Allergies Allergy/AdvReac Type Severity Reaction Status Date / Time codeine [CODEINE] Allergy Severe SWELLING Verified 01/16/22 15:18 erythromycin base Allergy Intermediate TOPICAL Verified 01/16/22 15:18 [Erythromycin Base] ERYTHROMYCIN- SKIN IRRITATION Active Medications: Current Medications Lactated Ringer's (Lr) 1,000 mls @ 100 mls/hr IVCONT .Q10H [facility] Home Medications Medication Instructions Recorded Confirmed Last Taken Type fluticasone propionate 50 2 spray intranasal DAILY 01/06/20 01/16/22 Unknown History mcg/actuation nasal spray,suspension pramipexole 1.5 mg tablet 1.5 mg PO BEDTIME 10/06/20 10/17/22 Unknown History sumatriptan succinate 50 mg tablet 50 mg PO DAILY PRN Headache 01/06/20 01/16/22 Unknown History cetirizine 10 mg tablet (Zyrtec) 10 mg PO DAILY PRN Allergy Symptoms 01/28/21 01/16/22 Unknown History Exam Exam Date and Time: January 20, 2022924 Height,Weight and Vital Signs: Height 5 ft 5 in Weight 72.575 kg Last Vital Signs Temp 97.9 F 01/20/22 09:06 Pulse 53 01/20/22 09:06 Resp 16 01/20/22 09:06 BP 112/69 01/20/22 09:06 Pulse Ox 97 01/20/22 09:06 O2 Del Method 01/20/22 09:06 Airway Mallampati Class: III TM Dist: >3cm Neck ROM: Full Heart: RRR Lungs: CTA Assessment and Plan Final Anesthetic Review Family History of Problems with Anesthesia: No History of Problems with Anesthesia: No ASA Class: II Final Preanesthetic Review: No Changes in Pt Med Stat, Meds/Allgs Chart Reviewed, Consent Obtained/Reviewed and Anes Risks/Benef Reviewed Patient Risk: Low Procedure Risk: Low Anesthetic Plan Anesthetic Plan: MAC: Disposition: Standard PACU
[2022-01-20] MEDS: Lactated Ringers 1,000 ML 100 ML IVCONT (09:27)
[2022-01-20 09:41] VITALS: PULSE 49
--- NOTE | 2022-01-20 11:06 | MHC.SHP ---
Pre-Procedural Eval Section A Date of Service: 01/20/22 The patient is an INPATIENT: No Changes since office visit: Yes Patient answered all questions The History & Physical has been completed within 30 days and I have reviewed it.: No Section B Chief Complaint: Sacrococcygeal disorders, not elsewhere classified Details of Present Illness: as above Relevant Family History (Specify if Yes): No Relevant Social History: None Present Medications: see Short Stay Collaborative assessment Medical History: No relevant PMH History of Previous Operations: Relevant previous surgery/procedure and date(s) Allergies: Allergies Allergy/AdvReac Type Severity Reaction Status Date / Time codeine [CODEINE] Allergy Severe SWELLING Verified 01/16/22 15:18 erythromycin base Allergy Intermediate TOPICAL Verified 01/16/22 15:18 [Erythromycin Base] ERYTHROMYCIN- SKIN IRRITATION Review of Systems Sugical H&P ROS: Negative: Constitution, Cardiovascular, Respiratory, Neurological, Psychiatric, Hem-Onc, Allergic/Immunologic, Gastrointestinal, Genitourinary, Musculoskeletal, Integumentary, Endocrine and Eyes/Ears/Nose/Throat Exam Surgical H&P Exam: Normal: HEENT, Normal: Heart, Normal: Lungs, Normal: Extremities, Normal: Abdomen, Normal: Skin and Normal: Neurological Plan Diagnosis/Plan: Unchanged I have reviewed the history and physical and performed a pertinent physical examination on my patient. No changes have occurred unless specified.
--- NOTE | 2022-01-20 11:46 | HO.ANESPROP2 ---
[facility] Active Problems Active Problems: All Active Problems (Updated 01/20/22 @ 08:55 by Edith Diamond RN) IgG deficiency (Acute) Flu-like symptoms (Acute) Elbow pain, left (Acute) Lateral epicondylitis, left elbow (Acute) Paresthesia of hand, bilateral (Acute) Traumatic injury of chest wall (Acute) Trigger finger, right ring finger (Acute) Carpal tunnel syndrome of right wrist (Acute) Cubital tunnel syndrome on right (Acute) Neuropathy (Acute) Carpal tunnel syndrome of left wrist (Acute) Distal radius fracture, right (Acute) URI (upper respiratory infection) (Acute) Rhonchi at right lung base (Acute) Major depression, recurrent (Acute) Anxiety, generalized (Acute) Upper respiratory tract infection (Acute) Trigger finger, right middle finger (Acute) Headache syndrome (Acute) Hypertension, essential (Acute) Numbness and tingling in left hand (Acute) Sacroiliac joint pain (Acute) Eczematous dermatitis (Acute) Sacroiliitis (Acute) Urgency of micturition (Acute) Interstitial cystitis (Acute) UTI (urinary tract infection) (Acute) Interstitial cystitis (Acute) Cervical radiculopathy (Acute) Failed back syndrome, lumbar (Acute) Lumbar spondylosis (Acute) Primary osteoarthritis, right hand (Acute) Cervical stenosis of spinal canal (Acute) Tennis elbow (Acute) Chronic narcotic dependence (Acute) Pain management (Acute) Allergic rhinitis (Acute) Muscle spasm (Acute) Dyspepsia (Acute) Depression, major, recurrent (Acute) Vitamin D deficiency (Acute) Iron deficiency (Acute) Restless leg syndrome (Acute) Spinal stenosis at L4-L5 level (Acute) Past Medical History Medical History Allergic rhinitis Cervical radiculopathy Cervical stenosis of spinal canal Chronic narcotic dependence Depression, major, recurrent Diverticulosis Dyspepsia Failed back syndrome, lumbar History of sleep apnea Hx LEEP (loop electrosurgical excision procedure), cervix, Hx of degenerative disc disease IBS (irritable bowel syndrome) Interstitial cystitis Interstitial cystitis Iron deficiency Lumbar spondylosis Migraines Muscle spasm Overactive bladder Pain management Primary osteoarthritis, right hand Restless leg syndrome Sacroiliitis Sleep apnea Spinal stenosis at L4-L5 level Tennis elbow Urgency of micturition UTI (urinary tract infection) Vitamin D deficiency Functional capacity: independent ambulation Patient : No Family History Family History Father Leukemia HTN (hypertension) CVD (cerebrovascular disease) Mother HTN (hypertension) Alzheimer disease Afib Maternal Grandmother Uterine cancer Maternal Grandfather History of heart attack CVD (cardiovascular disease) Paternal Grandmother History of heart attack CVD (cardiovascular disease) Paternal Grandfather CVD (cardiovascular disease) Maternal Aunt Cervical cancer Emphysema lung Family history of problems with anesthesia: No Surgical History Surgical History History of cystoscopy (01/27/14) History of endometrial ablation History of laparoscopic appendectomy History of lumbar surgery Hx of bilateral breast reduction surgery Hx of colonoscopy Hx of hysterectomy, total Hx of right knee surgery S/P trigger finger release History of Problems with Anesthesia: No Social History Social History Household Members Other:: lives with brother Housing: Other Alcohol intake: current Alcohol intake frequency: a few times a month Patient Tobacco Use Status: Former Tobacco user Quit Date: 4yrs ago Tobacco use type: Cigarette Years Smoked: 45 years e-Cigarette/Vaping Use: Never Used Use of substances other than those prescribed or required for medical reasons: Yes Are you DNR?: No Advance Directives: No Advance Directives Information Provided: Yes Patient : No service: No Current occupational status: disabled Current occupation: [employer] lt hand Cognitive needs: No Hearing needs: No Vision needs: Yes (contacts) Meds Allergies Allergy/AdvReac Type Severity Reaction Status Date / Time codeine [CODEINE] Allergy Severe SWELLING Verified 01/16/22 15:18 erythromycin base Allergy Intermediate TOPICAL Verified 01/16/22 15:18 [Erythromycin Base] ERYTHROMYCIN- SKIN IRRITATION Active Medications: Current Medications Acetaminophen (Acetaminophen 325 Mg Tablet) 650 mg PO ONCE PRN PRN Reason: Pain, Mild (Pain Scale 1-3) Fentanyl (Fentanyl Citrate/Pf 100 Mcg/2 Ml Vial) 25 mcg IVPUSH Q5M PRN; Protocol PRN Reason: Pain, Moderate (Pain Scale 4-6 Lactated Ringer's (Lr) 1,000 mls @ 100 mls/hr IVCONT .Q10H AMBER Last Admin: 01/20/22 09:27 Dose: 100 mls/hr Ondansetron HCl (Ondansetron Hcl 4 Mg/2 Ml Vial) 4 mg IVPUSH ONCE PRN PRN Reason: Nausea and Vomiting Oxycodone HCl (Oxycodone Hcl Immed Release 5 Mg Tablet) 5 mg PO ONCE PRN PRN Reason: Pain, Severe (Pain Scale 7-10) Home Medications Medication Instructions Recorded Confirmed Last Taken Type fluticasone propionate 50 2 spray intranasal DAILY 01/06/20 01/16/22 Unknown History mcg/actuation nasal spray,suspension pramipexole 1.5 mg tablet 1.5 mg PO BEDTIME 01/06/20 01/16/22 Unknown History sumatriptan succinate 50 mg tablet 50 mg PO DAILY PRN Headache 01/06/20 01/16/22 Unknown History cetirizine 10 mg tablet (Zyrtec) 10 mg PO DAILY PRN Allergy Symptoms 01/28/21 01/16/22 Unknown History Exam Exam Date and Time: January 20, 2022 1146 Height,Weight and Vital Signs: Height 5 ft 5 in Weight 72.575 kg Last Vital Signs Temp 97.9 F 01/20/22 09:06 Pulse 49 L 01/20/22 09:41 Resp 16 01/20/22 09:06 BP 112/69 01/20/22 09:06 Pulse Ox 97 01/20/22 09:06 O2 Del Method 01/20/22 09:06 Airway Mallampati Class: II TM Dist: >3cm Heart: RRR Lungs: CTA Assessment and Plan Final Anesthetic Review Family History of Problems with Anesthesia: No History of Problems with Anesthesia: No ASA Class: II Final Preanesthetic Review: No Changes in Pt Med Stat, Meds/Allgs Chart Reviewed, Consent Obtained/Reviewed and Anes Risks/Benef Reviewed Patient Risk: Low Procedure Risk: Low Anesthetic Plan Anesthetic Plan: MAC: Disposition: Standard PACU
--- NOTE | 2022-01-20 12:15 | PM.OP ---
Brief Operative Note Date of Service: 01/20/22 Pre-op diagnosis: postlaminectomy syndrome sacroiliitis Post-op diagnosis: same Procedure: Sacroiliac joint innervation stimulation stimwave Implants: none permanent Surgeon: Hernán Overton MD Was an Analytical Statistician used for this Procedure?: No Estimated blood loss (mL): 0 Pathology: none sent Condition: stable Disposition: PACU
[2022-01-20 12:16] VITALS: BP 106/58; PULSE 69; RESP 16; TEMP 36.7; O2SAT 95
--- NOTE | 2022-01-20 12:20 | P.OP_ITS ---
Operative Note Operative Note Date of Service: 01/20/22 Narrative: Trial of the sacroiliac joint innervation stimulation stim wave right Informed consent was thoroughly explained to the patient before moving her to the operating room.? Risks and benefits were explained and all the questions were answered. Patient ? was taken to the operating room, she was positioned prone on the operating table with the pillow under her pelvis.? [place] [employer] monitors were applied and patient was deeply sedated. Time out was performed delineated correct name and of the patient, site, side and nature of the procedure, risks of DVT and fire, need for antibiotics. she received 2 g of cefazolin approximately 15 minutes before the onset of the procedure. Her lower back and buttocks was prepped with ChloraPrep twice, and draped with sterile towels.? Sterilely draped C-arm was brought over the operating field and sq picture of patient's pelvis was demonstrated on the screen.? Attention was concentrated on the Right SI joint. The sacral ala on the right was chosen as a target of the needles insertion. 3 cm above the sacral ala projection in the lumbar area injection of the local anesthetic was performed in the skin. Using 11 blade scalpel small jacques in the skin was performed. 16 gauge introducer stimwave malleable needle? was inserted through the jacques and advanced toward the sacral alae on the right.? After needle met the bone on sacral ala it was redirected slightly posterior and continued to advance alongside the curvature of the sacral bone.? When the tip of the needle reached the end of the projection of the sacroiliac joint inferiorly advancement stops and guitar wire was introduced into the needle.? It went through the needle without difficulties.. ?After that 8 electrode stimulating array lead was inserted through the needle and advanced to the desired position.? The needle was removed and care was taken not to dislodge the lead.? The driving stylet was removed from the lead and it was replaced with stimulating copper wire antenna electrodes.? After that the knots were tied just below the level of the 2nd antenna ? contact.?Two 0-0 silk stitches were applied to the skin to anchor the leads to the skin. Mastisol was applied to the skin a and Steri-Strips was used to fix the stimulating leads to the skin.? Sterile dressing applied, stimulating pad was applied and taped to the skin using Medipore tape. Upon completion of the procedure the patient was awaken she was taken outside of the operating room to recovery room where she recovered uneventfully.
[2022-01-20 12:31] VITALS: BP 117/66; PULSE 66; RESP 18; TEMP 36.9; O2SAT 97
--- NOTE | 2022-01-20 13:50 | HO.POSTANES ---
Post Anesthesia Evaluation Post Anesthesia Evaluation Vital Signs: Vital Signs Temp Pulse Resp BP Pulse Ox O2 Del Method 01/20/22 12:31 98.5 F 66 18 117/66 97 Room Air 01/20/22 12:16 98.0 F 69 16 106/58 L 95 Room Air 01/20/22 09:41 49 L 01/20/22 09:06 97.9 F 53 16 112/69 97 Room Air Anesthesia: Monitored Mental Status: Awake Pain Control: Satisfactory Nausea/Vomiting: None Hydration: Adequate Anesthesia-Related Issues: No Anes. Related Issues
== END 2022-01-20 13:16 | disposition home or self-care (01) ==
PROVIDERS: PCP Internal Medicine; Visit Provider Anesthesiology
PROC: (CPT 64561; principal; 2022-01-20 10:40)
DX: M53.3 Sacrococcygeal disorders, not elsewhere classified (principal); M96.1 Postlaminectomy syndrome, not elsewhere classified; M46.1 Sacroiliitis, not elsewhere classified; Z79.899 Other long term (current) drug therapy; Z88.1 Allergy status to other antibiotic agents
CPT/HCPCS: 64561; C1897; J0461; J0690; J1100; J2250; J2795; J3010

== ENCOUNTER → 2022-01-26 10:11 | Outpatient (BNVA) | payer OTHER, SELFPAY | PROVIDERS: PCP Internal Medicine; Visit Provider Anesthesiology | DX: M53.3 Sacrococcygeal disorders, not elsewhere classified (principal); Z98.890 Other specified postprocedural states | CPT/HCPCS: 99212 ==

== ENCOUNTER 2022-02-03 08:26 | Day surgery (SDC) | payer OTHER, SELFPAY ==
--- NOTE | 2022-02-02 12:33 | HO.ANESPROP2 ---
Documented by User: Charo Murillo NP 02/02/22 12:34 HPI - Anesthesia Eval Consult details Narrative: 66yo F for Right Sacroiliac Joint Innerv Stim Implant s/p trial 01/20/22 with MAC PMFSH Active Problems Active Problems: All Active Problems (Updated 02/01/22 @ 09:26 by Kalia Hunt MD) Encounter for general adult medical examination with abnormal findings (Acute) Facial rash (Acute) IgG deficiency (Acute) Flu-like symptoms (Acute) Elbow pain, left (Acute) Lateral epicondylitis, left elbow (Acute) Paresthesia of hand, bilateral (Acute) Traumatic injury of chest wall (Acute) Trigger finger, right ring finger (Acute) Carpal tunnel syndrome of right wrist (Acute) Cubital tunnel syndrome on right (Acute) Neuropathy (Acute) Carpal tunnel syndrome of left wrist (Acute) Distal radius fracture, right (Acute) URI (upper respiratory infection) (Acute) Rhonchi at right lung base (Acute) Major depression, recurrent (Acute) Anxiety, generalized (Acute) Upper respiratory tract infection (Acute) Trigger finger, right middle finger (Acute) Headache syndrome (Acute) Hypertension, essential (Acute) Numbness and tingling in left hand (Acute) Sacroiliac joint pain (Acute) Eczematous dermatitis (Acute) Sacroiliitis (Acute) Urgency of micturition (Acute) Interstitial cystitis (Acute) UTI (urinary tract infection) (Acute) Interstitial cystitis (Acute) Cervical radiculopathy (Acute) Failed back syndrome, lumbar (Acute) Lumbar spondylosis (Acute) Primary osteoarthritis, right hand (Acute) Cervical stenosis of spinal canal (Acute) Tennis elbow (Acute) Chronic narcotic dependence (Acute) Pain management (Acute) Allergic rhinitis (Acute) Muscle spasm (Acute) Dyspepsia (Acute) Depression, major, recurrent (Acute) Vitamin D deficiency (Acute) Iron deficiency (Acute) Restless leg syndrome (Acute) Spinal stenosis at L4-L5 level (Acute) Past Medical History Medical History Allergic rhinitis Cervical radiculopathy Cervical stenosis of spinal canal Chronic narcotic dependence Depression, major, recurrent Diverticulosis Dyspepsia Failed back syndrome, lumbar History of sleep apnea Hx LEEP (loop electrosurgical excision procedure), cervix, Hx of degenerative disc disease IBS (irritable bowel syndrome) Interstitial cystitis Interstitial cystitis Iron deficiency Lumbar spondylosis Migraines Muscle spasm Overactive bladder Pain management Primary osteoarthritis, right hand Restless leg syndrome Sacroiliitis Sleep apnea Spinal stenosis at L4-L5 level Tennis elbow Urgency of micturition UTI (urinary tract infection) Vitamin D deficiency Family History Family History Father Leukemia HTN (hypertension) CVD (cerebrovascular disease) Mother HTN (hypertension) Alzheimer disease Afib Maternal Grandmother Uterine cancer Maternal Grandfather History of heart attack CVD (cardiovascular disease) Paternal Grandmother History of heart attack CVD (cardiovascular disease) Paternal Grandfather CVD (cardiovascular disease) Maternal Aunt Cervical cancer Emphysema lung Family history of problems with anesthesia: No Surgical History Surgical History History of cystoscopy (01/27/14) History of endometrial ablation History of laparoscopic appendectomy History of lumbar surgery Hx of bilateral breast reduction surgery Hx of colonoscopy Hx of hysterectomy, total Hx of right knee surgery S/P trigger finger release History of Problems with Anesthesia: No Social History Social History Household Members Other:: lives with brother Housing: Other Alcohol intake: current Alcohol intake frequency: a few times a month Patient Tobacco Use Status: Former Tobacco user Quit Date: 6 years ago Tobacco use type: Cigarette Years Smoked: 45 years e-Cigarette/Vaping Use: Never Used Use of substances other than those prescribed or required for medical reasons: Yes Are you DNR?: No Advance Directives: No Advance Directives Information Provided: Yes service: No Current occupational status: disabled Current occupation: [employer] Cognitive needs: No Hearing needs: No Vision needs: Yes (contacts) Meds Allergies Allergy/AdvReac Type Severity Reaction Status Date / Time codeine [CODEINE] Allergy Severe SWELLING Verified 02/01/22 08:55 erythromycin base Allergy Intermediate TOPICAL Verified 02/01/22 08:55 [Erythromycin Base] ERYTHROMYCIN- SKIN IRRITATION Home Medications Medication Instructions Recorded Confirmed Last Taken Type fluticasone propionate 50 2 spray intranasal DAILY 01/06/20 02/01/22 Unknown History mcg/actuation nasal spray,suspension pramipexole 1.5 mg tablet 1.5 mg PO BEDTIME 01/06/20 02/01/22 Unknown History sumatriptan succinate 50 mg tablet 50 mg PO DAILY PRN Headache 01/06/20 02/01/22 Unknown History cetirizine 10 mg tablet (Zyrtec) 10 mg PO DAILY PRN Allergy Symptoms 01/28/21 02/01/22 Unknown History clobetasol 0.05 % topical ointment g topical BID PRN 02/01/22 02/01/22 Unknown History Exam Exam Date and Time: February 02, 2022 1233 Assessment and Plan Assessment Anesthesia Assessment: Chart Reviewed Final Anesthetic Review Family History of Problems with Anesthesia: No History of Problems with Anesthesia: No Documented by User: Yareli Ott MD 02/03/22 12:15 [facility] Active Problems Active Problems: All Active Problems (Updated 02/01/22 @ 09:26 by Kalia Hunt MD) Encounter for general adult medical examination with abnormal findings (Acute) Facial rash (Acute) IgG deficiency (Acute) Flu-like symptoms (Acute) Elbow pain, left (Acute) Lateral epicondylitis, left elbow (Acute) Paresthesia of hand, bilateral (Acute) Traumatic injury of chest wall (Acute) Trigger finger, right ring finger (Acute) Carpal tunnel syndrome of right wrist (Acute) Cubital tunnel syndrome on right (Acute) Neuropathy (Acute) Carpal tunnel syndrome of left wrist (Acute) Distal radius fracture, right (Acute) URI (upper respiratory infection) (Acute) Rhonchi at right lung base (Acute) Major depression, recurrent (Acute) Anxiety, generalized (Acute) Upper respiratory tract infection (Acute) Trigger finger, right middle finger (Acute) Headache syndrome (Acute) Hypertension, essential (Acute) Numbness and tingling in left hand (Acute) Sacroiliac joint pain (Acute) Eczematous dermatitis (Acute) Sacroiliitis (Acute) Urgency of micturition (Acute) Interstitial cystitis (Acute) UTI (urinary tract infection) (Acute) Interstitial cystitis (Acute) Cervical radiculopathy (Acute) Failed back syndrome, lumbar (Acute) Lumbar spondylosis (Acute) Primary osteoarthritis, right hand (Acute) Cervical stenosis of spinal canal (Acute) Tennis elbow (Acute) Chronic narcotic dependence (Acute) Pain management (Acute) Allergic rhinitis (Acute) Muscle spasm (Acute) Dyspepsia (Acute) Depression, major, recurrent (Acute) Vitamin D deficiency (Acute) Iron deficiency (Acute) Restless leg syndrome (Acute) Spinal stenosis at L4-L5 level (Acute) SHANDA. Not using CPAP. Unable to tolerate Past Medical History Medical History Allergic rhinitis Cervical radiculopathy Cervical stenosis of spinal canal Chronic narcotic dependence Depression, major, recurrent Diverticulosis Dyspepsia Failed back syndrome, lumbar History of sleep apnea Hx LEEP (loop electrosurgical excision procedure), cervix, Hx of degenerative disc disease IBS (irritable bowel syndrome) Interstitial cystitis Interstitial cystitis Iron deficiency Lumbar spondylosis Migraines Muscle spasm Overactive bladder Pain management Primary osteoarthritis, right hand Restless leg syndrome Sacroiliitis Sleep apnea Spinal stenosis at L4-L5 level Tennis elbow Urgency of micturition UTI (urinary tract infection) Vitamin D deficiency Family History Family History Father Leukemia HTN (hypertension) CVD (cerebrovascular disease) Mother HTN (hypertension) Alzheimer disease Afib Maternal Grandmother Uterine cancer Maternal Grandfather History of heart attack CVD (cardiovascular disease) Paternal Grandmother History of heart attack CVD (cardiovascular disease) Paternal Grandfather CVD (cardiovascular disease) Maternal Aunt Cervical cancer Emphysema lung Surgical History Surgical History History of cystoscopy (01/27/14) History of endometrial ablation History of laparoscopic appendectomy History of lumbar surgery Hx of bilateral breast reduction surgery Hx of colonoscopy Hx of hysterectomy, total Hx of right knee surgery S/P trigger finger release Social History Social History Household Members Other:: lives with brother Housing: Other Alcohol intake: current Alcohol intake frequency: a few times a month Patient Tobacco Use Status: Former Tobacco user Quit Date: 6 years ago Tobacco use type: Cigarette Years Smoked: 45 years e-Cigarette/Vaping Use: Never Used Use of substances other than those prescribed or required for medical reasons: Yes Are you DNR?: No Advance Directives: No Advance Directives Information Provided: Yes service: No Current occupational status: disabled Current occupation: [employer] Cognitive needs: No Hearing needs: No Vision needs: Yes (contacts) Meds Allergies Allergy/AdvReac Type Severity Reaction Status Date / Time codeine [CODEINE] Allergy Severe SWELLING Verified 02/01/22 08:55 erythromycin base Allergy Intermediate TOPICAL Verified 02/01/22 08:55 [Erythromycin Base] ERYTHROMYCIN- SKIN IRRITATION Home Medications Medication Instructions Recorded Confirmed Last Taken Type fluticasone propionate 50 2 spray intranasal DAILY 01/06/20 02/01/22 Unknown History mcg/actuation nasal spray,suspension pramipexole 1.5 mg tablet 1.5 mg PO BEDTIME 01/06/20 02/01/22 Unknown History sumatriptan succinate 50 mg tablet 50 mg PO DAILY PRN Headache 01/06/20 02/01/22 Unknown History cetirizine 10 mg tablet (Zyrtec) 10 mg PO DAILY PRN Allergy Symptoms 01/28/21 02/01/22 Unknown History clobetasol 0.05 % topical ointment g topical BID PRN 02/01/22 02/01/22 Unknown History Exam Height,Weight and Vital Signs: Height 5 ft 4 in Weight 71.214 kg Vital Signs Temp Pulse Resp BP Pulse Ox O2 Del Method 02/03/22 09:33 97.8 F 53 18 129/52 L 97 Room Air Airway Mallampati Class: II TM Dist: >3cm Neck ROM: Full Loose/Missing/Broken Teeth: No (Bridges intact. Denies broken or loose teeth) Heart: RRR Lungs: CTAB Assessment and Plan Assessment Anesthesia Assessment: Anesthesia Plan Discussed Final Anesthetic Review NPO: Yes ASA Class: III Final Preanesthetic Review: No Changes in Pt Med Stat, Meds/Allgs Chart Reviewed, Consent Obtained/Reviewed and Anes Risks/Benef Reviewed Patient Risk: Intermediate Procedure Risk: Low Assessment/Block/Sedation in SS: Assess/Block/Sedation- Anesthetic Plan Anesthetic Plan: GA Disposition: Standard PACU
[2022-02-03] VITALS (16 sets, daily range): BP systolic 109–156; BP diastolic 43–80; PULSE 53–72; RESP 16–18; TEMP 36.1–36.6; O2SAT 95–100; BMI 26.9
--- NOTE | ~2022-02-03 | FL_ITS ---
EXAMINATION: XR FLUOROSCOPY WITH IMAGES CLINICAL INFORMATION: Pain. Therapeutic right SI joint stimulator implant. COMPARISON: Fluoroscopic spot views 01/20/2022, 10/18/2021 TECHNIQUE: Fluoroscopy performed by Dr. Hernán Overton. Fluoroscopy time: 0.3 minutes. Cumulative Dose: 12.4 mGy. DAP: 3.38 Gycm2. Images: 2. FINDINGS: There is an additional vertically oriented stimulator lead parallel and just medial to the prior implant. No kinking or defect. Again, some old orphaned electrode fragments are seen. FL/FL guidance in OR IMPRESSION: 1. Fluoroscopy for pain management procedure. 2. Additional stimulator lead parallel and just medial to prior implant.
[2022-02-03] MEDS: Lactated Ringers 1,000 ML 100 ML IVCONT (09:58)
--- NOTE | 2022-02-03 11:35 | MHC.SHP ---
Pre-Procedural Eval Section A Date of Service: 02/03/22 The patient is an INPATIENT: No Changes since office visit: Yes Patient answered all questions The History & Physical has been completed within 30 days and I have reviewed it.: No Section B Chief Complaint: Sacrococcygeal disorders, Details of Present Illness: as above Relevant Family History (Specify if Yes): No Present Medications: None Medical History: No relevant PMH History of Previous Operations: No relevant previous surgery Allergies: Allergies Allergy/AdvReac Type Severity Reaction Status Date / Time codeine [CODEINE] Allergy Severe SWELLING Verified 02/01/22 08:55 erythromycin base Allergy Intermediate TOPICAL Verified 02/01/22 08:55 [Erythromycin Base] ERYTHROMYCIN- SKIN IRRITATION Review of Systems Sugical H&P ROS: Negative: Constitution, Cardiovascular, Respiratory, Neurological, Psychiatric, Hem-Onc, Allergic/Immunologic, Gastrointestinal, Genitourinary, Musculoskeletal, Integumentary, Endocrine and Eyes/Ears/Nose/Throat Exam Surgical H&P Exam: Normal: HEENT, Normal: Heart, Normal: Lungs, Normal: Extremities, Normal: Abdomen, Normal: Skin and Normal: Neurological Plan Diagnosis/Plan: Unchanged I have reviewed the history and physical and performed a pertinent physical examination on my patient. No changes have occurred unless specified.
--- NOTE | 2022-02-03 11:39 | W.PM.OPN ---
Operative Note Operative Note Date of Service: 02/03/22 Narrative: Sacroiliac joint innervation stimulation Stimwave implantation. After obtaining informed consent the patient was brought to the operating room, she was positioned supine on the stretcher ASA m-rs were applied and the patient was induced with GETA. She was transferred on the ORT prone and all pressure points were protected. ?Time-out was performed delineating correct site, side, the nature of the procedure, patient's allergy, preoperative antibiotic.? All operating room staff was participating in OR time-out procedure.? The patient received cefazolin 2 gr. intravenously 30 minutes before the procedure. the patient's entire back? was prepped with ChloraPrep twice. Whole body drape was applied including Ioban film.? Sterilely draped C-arm was brought over the operating field and sq picture of left side of the pelvis was demonstrated on the screen. Attention then was concentrated on the right sacroiliac joint. 4 cm above from the patient's ? right sacral ala projection the skin was infiltrated in linear horizontal fashion and? 10 blade scalpel was used to make an horizontal incision on the skin 4 cm long. The wound was widened and deepened until the superficial fascia. 16 g 15 cm introducer malleable needle was inserted through the fascia and advanced to the? left sacral ala under intermittent anterior posterior and lateral x-ray views.. when the position of the tip of the introducer needle was verified on the lateral view above the level of the bone,? the needle advanced alongside the sacral bone curvature following the direction of the silhouette of the sacroiliac joint.? permanent stimulator catheter was inserted and advanced in the needle? When the body of the lead? reached adequate position the stirring stilet was removed from the lead and a conduction copper wire was inserted into the lead and advanced until resistance was met. The introducer needle was withdrawn with care taken not to dislodge the stimulating lead. After that - one more stimulating lead was inserted into slightly more medial position and more proximal position 1 cm to the lateral side from the first stimulating lead using the same technique as described above.? both leads were sutured to superficial fascia using 0 Tycron intermittent sutures for each of the lead. The wound was irrigated with vancomycin containing normal saline. After that in the upper right lumbar paraspinal area? local anesthetic was injected into the skin and the vertical Five cm incision was made using 10 blade scalpel. This wound was widened and deepened using dull dissection and hemostasis was performed using electrocautery. After that this wound was irrigated with vancomycin containing normal saline and? tunneling device was used to connect the two wounds. The tales of the stimulating electrodes were tunneled from the distal wound to the proximal wound and tunneling device was split and withdrawn. Care was taken to form straight position of the stimulating leads. After that the ends of the plastic leads were tide on itself and then the coil was? formed from the free ends of the? two plastic leads using free? Tycron suture knots. the coil was inserted into the wound. After that both wounds were irrigated again, they were closed using 0-2 Polysorb sutures after that 0-2 polisorb sutures were used to approximate the edges of the skin., ? Steri-Strips were applied to the skin level. ?sterile dressings with bacitracin were affixed on the both wounds. The patient was awaken, transferred to PACU, where she recovered uneventfully.
--- NOTE | 2022-02-03 14:13 | PM.OP ---
Brief Operative Note Date of Service: 02/03/22 Pre-op diagnosis: sacroiliitis sacroiliac joint pain. Post-op diagnosis: same Procedure: Stimwave SI joint innervation stimulation implant Implants: 2 stimulating stimwave leads. Surgeon: Hernán Overton MD Anesthesia: GETA Was an Slot Floor Supervisor used for this Procedure?: No Estimated blood loss (mL): 6 Pathology: none sent Condition: stable Disposition: PACU
[2022-02-03] MEDS: fentaNYL citrate/PF 100 MCG/2 ML VIAL 25 MCG IVPUSH ×4 (14:46→15:47)
[2022-02-03] MEDS: Acetaminophen 325 MG TABLET 650 MG PO (14:49)
[2022-02-03] MEDS: oxyCODONE HCl Immed Release 5 MG TABLET PO (14:49)
== END 2022-02-03 16:18 | disposition home or self-care (01) ==
PROVIDERS: PCP Internal Medicine; Visit Provider Anesthesiology
PROC: (CPT 64555; principal; 2022-02-03 10:20)
DX: M53.3 Sacrococcygeal disorders, not elsewhere classified (principal); M46.1 Sacroiliitis, not elsewhere classified; Z88.8 Allergy status to other drugs, medicaments and biological substances; Z88.1 Allergy status to other antibiotic agents; Z87.891 Personal history of nicotine dependence; Z98.890 Other specified postprocedural states
CPT/HCPCS: 64555 ×2; C1816; J0690; J1100; J2250; J2405; J2795; J3010; J3370

== ENCOUNTER → 2022-02-08 14:19 | Outpatient (BNVA) | payer OTHER, SELFPAY | PROVIDERS: PCP Internal Medicine; Visit Provider Anesthesiology | DX: M53.3 Sacrococcygeal disorders, not elsewhere classified (principal) | CPT/HCPCS: 99212 ==

== ENCOUNTER → 2022-02-16 10:21 | Outpatient (BNVA) | payer OTHER, SELFPAY | PROVIDERS: PCP Internal Medicine; Visit Provider Anesthesiology | DX: M53.3 Sacrococcygeal disorders, not elsewhere classified (principal) | CPT/HCPCS: 99212 ==

== ENCOUNTER → 2022-02-27 08:26 | Outpatient (BNVA) | payer OTHER, SELFPAY | PROVIDERS: PCP Internal Medicine; Visit Provider Anesthesiology | DX: M53.3 Sacrococcygeal disorders, not elsewhere classified (principal) | CPT/HCPCS: 99212 ==

== ENCOUNTER → 2022-04-11 13:21 | Outpatient (BNVA) | payer OTHER, SELFPAY | PROVIDERS: PCP Internal Medicine; Visit Provider Nurse Practitioner Family | DX: R39.15 Urgency of urination (principal); N30.10 Interstitial cystitis (chronic) without hematuria; N32.81 Overactive bladder; R32 Unspecified urinary incontinence | CPT/HCPCS: 51798; 99212 ==

== ENCOUNTER 2022-07-27 07:16 | Outpatient (REF) | payer OTHER, SELFPAY ==
[2022-07-27 11:46] LABS: Alanine Aminotransferase 14 U/L (0-31); Albumin Level 4.5 g/dL (3.5-5.0); Alkaline Phosphatase 106 U/L (39-117); Anion Gap 16 (12-20); Aspartate Amino Transferase 20 U/L (5-31); Bilirubin Total 0.6 mg/dL (0.0-1.0); Blood Urea Nitrogen 17 mg/dL (9-16); Calcium 9.5 mg/dL (8.4-10.2); Carbon Dioxide 23 mmol/L (22-29); Chloride 106 mmol/L (96-108); Cholesterol 266 mg/dL; Estimated Glomerular Filt Rate > 60; Glucose Fasting 95 mg/dL (60-99); HDL Cholesterol 69 mg/dL; LDL Cholesterol Calculated 171 mg/dl; Potassium 4.8 mmol/L (3.3-5.1); Sodium 140 mmol/L (135-145); Total Protein 6.9 g/dL (6.5-8.0); Triglycerides 133 mg/dL
== END 2022-07-27 07:17 | disposition home or self-care (01) ==
LOC: HO.HMGCLDS 07:16
PROVIDERS: PCP Internal Medicine; Visit Provider Internal Medicine
DX: Z00.01 Encounter for general adult medical examination with abnormal findings (principal); G44.89 Other headache syndrome; I10 Essential (primary) hypertension; L30.9 Dermatitis, unspecified; M96.1 Postlaminectomy syndrome, not elsewhere classified; N30.10 Interstitial cystitis (chronic) without hematuria; R21 Rash and other nonspecific skin eruption; F41.1 Generalized anxiety disorder
CPT/HCPCS: 36415; 80053; 80061

== ENCOUNTER 2022-08-09 10:32 | Outpatient (REF) | payer OTHER, SELFPAY ==
[2022-08-09 11:25] LABS: Appearance Urine Cloudy; Color Urine Yellow; Glucose Urine UA Negative (Negative); Leukocyte Esterase Urine Large (3+) (Negative); Nitrite Urine Positive (Negative); UMIC TRIGGER UA YES; Urine Blood Negative (Negative); Urine Ketones Negative (Negative); Urine Protein Negative (Neg-Trace)
[2022-08-09 11:31] LABS: Bacteria Urine 4+ (None Seen); Hyaline Casts Urine 0-2 /LPF (0-2); RBC Urine 0-2 /HPF (0-2); Squamous Epithelial Cell Urine 0-2 /HPF (0-2); WBC Urine >50 /HPF (0-5)
== END 2022-08-09 10:33 | disposition home or self-care (01) ==
LOC: HO.HMGCLDS 10:32
PROVIDERS: PCP Internal Medicine; Visit Provider Nurse Practitioner Family
DX: N39.0 Urinary tract infection, site not specified (principal)
CPT/HCPCS: 81001; 87086; 87088; 87186